=== PATIENT | female | born 1985 | race Caucasian/White ===

== ENCOUNTER 2020-08-01 00:12 | Inpatient (IN) | payer SELFPAY ==
[2020-08-01 00:46] VITALS: BP 134/83; PULSE 74; RESP 18; TEMP 36.6; O2SAT 95; BMI 26.6
--- NOTE | 2020-08-01 01:01 | ED_ITS ---
HPI - Psych General: Chief Complaint: Psychiatric Symptoms Stated Complaint: mhe, stress unit Time Seen by Provider: 08/01/20 00:27 Source: patient Mode of arrival: ambulatory Limitations: no limitations History of Present Illness: HPI Narrative: 34-year-old female states she has been having increasing depression over the last week. She states she feels overwhelmed with life and feels like she is a failure. Patient is crying and very tearful and states she just does not want to live anymore. She states she has been having suicidal thoughts and wants to get help. She has no specific plan. States she is admitted to psych facility as a child but never as an adult. She denies any psych medication currently. She denies drug use but states she does drink almost daily. MD complaint: suicidal ideation Associated symptoms: Reports depression and suicidal ideation Review of Systems Const: Denies: fever(s), chills, body aches or change in appetite Eyes: Denies: blurry vision or eye discomfort ENMT: Denies: throat pain or dental pain Card: Denies: chest pain Resp: Denies: dyspnea GI: Denies: abdominal pain, nausea, vomiting or diarrhea : Denies: dysuria Musc: Denies: neck pain or back pain Skin/Breast: Denies: rash Neuro: Denies: headache(s) Psych: Reports: depression and suicidal ideation Barry/Lymph: Denies: easy bruising All/Imm: Denies: urticaria PFSH ED PFSH: Social History Smoking and tobacco status: current every day smoker Current gender identity: Female Female Reproductive History: Date of last menstrual period: 08/01/20 Physical Exam Const: COMMON NORMALS: no acute distress, patient oriented x3 and healthy appearing GENERAL APPEARANCE: anxious HENMT: COMMON NORMALS: normocephalic and atraumatic HEAD & SCALP: normocephalic and atraumatic Eye: COMMON NORMALS: Equal, round and reactive pupils present and EOMs intact bilaterally PUPIL: Yes Equal, round and reactive pupils present Neck/C-Spine: COMMON NORMALS: full ROM and supple Chest: COMMONS NORMALS: normal inspection of the chest and normal palpation of entire chest wall Resp: COMMON NORMALS: normal respiratory effort, No retractions, No use of accessory muscles and clear to auscultation bilaterally AUSCULTATION: clear to auscultation bilaterally Cardio: COMMON NORMALS: regular rate, regular rhythm and No murmurs present (Cardio) RATE: regular rate RHYTHM: regular rhythm GI: COMMON NORMALS: Normal to inspection, nondistended, normoactive bowel sounds present, Soft to palpation, non-tender and no masses PALPATION: Yes Soft to palpation Extremity: COMMON NORMALS: normal to inspection and full ROM Neuro: COMMON NORMALS: patient oriented x3, moves all extremities and no focal motor deficits Psych: COMMON NORMALS: mental status grossly normal, Normal thought process present and cooperative THOUGHT PROCESS: Normal thought process present THOUGHT CONTENT: Yes Suicidality present OTHER: tearful Skin: COMMON NORMALS: no rashes or lesions noted and no wounds GENERAL SKIN EXAM: no rashes or lesions noted MDM - Psych MDM Narrative: Medical decision making narrative: Lukas presents here with suicidal ideation and depression. Patient is voluntarily wanting to be admitted and she is medically cleared. I spoke to psychiatrist and will admit her to the psychiatric unit. She has been stable while here. Lab Data: Labs: Lab Results 08/01/20 08/01/20 08/01/20 Range/Units 01:39 01:39 01:43 WBC 7.8 (4.0-10.0) 10^3/ uL RBC 4.84 (4.1-5.3) 10^6/u L Hgb 15.5 H (11.5-15.3) g/dL Hct 47.3 H (37.0-47.0) % MCV 97.7 (81-99) fL MCH 32.0 (28.0-34.0) pg MCHC 32.8 (30.0-36.0) g/dL RDW 13.4 (12.1-15.1) % Plt Count 301 (130-400) 10^3/c mm MPV 10.8 H (7.4-10.4) fL Neut % (Auto) 43.5 % Lymph % (Auto) 47.0 % [place] % (Auto) 4.0 % Eos % (Auto) 4.1 % Baso % (Auto) 1.0 % Neut # (Auto) 3.37 (1.8-7.7) 10^3/u L Lymph # (Auto) 3.7 (0.8-4.8) 10^3/u L [place] # (Auto) 0.3 (0.2-0.9) 10^3/u L Eos # (Auto) 0.3 (0.0-0.8) 10^3/u L Baso # (Auto) 0.1 (0.0-0.1) 10^3/u L Nucleated RBC % (a uto) 0 % Nucleated RBCs # 0.0 /100WBC Sodium 142 (136-145) mmol/L Potassium 4.1 (3.5-5.1) mmol/L Chloride 104 (98-107) mmol/L Carbon Dioxide 31 H (22-29) mmol/L Anion Gap 11.1 (5-19) BUN 10 (6-20) mg/dL Creatinine 0.8 (0.5-0.9) mg/dL GFR Calculation 81.2 L (90-130) mL/min Glucose 104 (65-115) mg/dL Calculated Osmolal ity 293 (285-295) mOsm/k g Calcium 8.6 (8.5-10.5) mg/dL Total Bilirubin 0.2 (0.15-1.2) mg/dL AST 67 H (0-32) U/L ALT 64 H (0-33) U/L Alkaline Phosphata se 93 (35-105) IU/L Total Protein 8.7 (6.6-8.7) g/dL Albumin 4.6 (3.5-5.2) g/dL Globulin 4.1 (1.3-4.6) g/dL HCG, Qual Negative (Negative) Salicylates < 0.3 L (3-10) mg/dL Urine Opiates Scre en (Negative) ng/mL Acetaminophen < 5.0 L (10-30) ug/mL Ur Barbiturates Sc reen (Negative) ng/mL Ur Phencyclidine S crn (Negative) ng/mL Ur Amphetamines Sc reen (Negative) ng/mL U Benzodiazepines Scrn (Negative) ng/mL Urine Cocaine Scre en (Negative) ng/mL U Marijuana (THC) Screen (Negative) ng/mL Ethyl Alcohol 181 H (0-10) mg/dL 08/01/20 Range/Units 01:43 WBC (4.0-10.0) 10^3/ uL RBC (4.1-5.3) 10^6/u L Hgb (11.5-15.3) g/dL Hct (37.0-47.0) % MCV (81-99) fL MCH (28.0-34.0) pg MCHC (30.0-36.0) g/dL RDW (12.1-15.1) % Plt Count (130-400) 10^3/c mm MPV (7.4-10.4) fL Neut % (Auto) % Lymph % (Auto) % [place] % (Auto) % Eos % (Auto) % Baso % (Auto) % Neut # (Auto) (1.8-7.7) 10^3/u L Lymph # (Auto) (0.8-4.8) 10^3/u L [place] # (Auto) (0.2-0.9) 10^3/u L Eos # (Auto) (0.0-0.8) 10^3/u L Baso # (Auto) (0.0-0.1) 10^3/u L Nucleated RBC % (a uto) % Nucleated RBCs # /100WBC Sodium (136-145) mmol/L Potassium (3.5-5.1) mmol/L Chloride (98-107) mmol/L Carbon Dioxide (22-29) mmol/L Anion Gap (5-19) BUN (6-20) mg/dL Creatinine (0.5-0.9) mg/dL GFR Calculation (90-130) mL/min Glucose (65-115) mg/dL Calculated Osmolal ity (285-295) mOsm/k g Calcium (8.5-10.5) mg/dL Total Bilirubin (0.15-1.2) mg/dL AST (0-32) U/L ALT (0-33) U/L Alkaline Phosphata se (35-105) IU/L Total Protein (6.6-8.7) g/dL Albumin (3.5-5.2) g/dL Globulin (1.3-4.6) g/dL HCG, Qual (Negative) Salicylates (3-10) mg/dL Urine Opiates Scre en Negative (Negative) ng/mL Acetaminophen (10-30) ug/mL Ur Barbiturates Sc reen Negative (Negative) ng/mL Ur Phencyclidine S crn Negative (Negative) ng/mL Ur Amphetamines Sc reen Negative (Negative) ng/mL U Benzodiazepines Scrn Negative (Negative) ng/mL Urine Cocaine Scre en Negative (Negative) ng/mL U Marijuana (THC) Screen Positive H (Negative) ng/mL Ethyl Alcohol (0-10) mg/dL Discharge Plan Discharge Patient Disposition: Admitted As Inpatient Clinical Impression: Suicidal ideation Condition: Stable Coding Level of Care Code ED Finish Cleaner for Jessica Villa Exam Comprehensive
[2020-08-01] MEDS: LORazepam 1 mg Tablet PO (01:25)
[2020-08-01 01:56] LABS: Basophils # 0.1 10^3/uL (0.0-0.1); Eosinophils # 0.3 10^3/uL (0.0-0.8); Eosinophils % 4.1 %; Hematocrit 47.3 % (37.0-47.0); Hemoglobin 15.5 g/dL (11.5-15.3); Lymphocytes # 3.7 10^3/uL (0.8-4.8); Mean Corpuscular HGB Conc 32.8 g/dL (30.0-36.0); Mean Corpuscular Volume 97.7 fL (81-99); Mean Platelet Volume 10.8 fL (7.4-10.4); Monocytes # 0.3 10^3/uL (0.2-0.9); Neutrophils # 3.37 10^3/uL (1.8-7.7); Neutrophils % 43.5 %; Nucleated Red Blood Cells % 0 %; Platelet Count 301 10^3/cmm (130-400); Red Blood Count 4.84 10^6/uL (4.1-5.3); Red Cell Distribution Width 13.4 % (12.1-15.1); White Blood Count 7.8 10^3/uL (4.0-10.0)
[2020-08-01 02:03] LABS: HCG Qualitative Urine. Negative (Negative)
[2020-08-01 02:08] LABS: Amphetamines Screen Urine Negative (Negative); Barbiturates Screen Urine Negative (Negative); Benzodiazepines Screen Urine Negative (Negative); Cocaine Screen Urine Negative (Negative); Opiate Screen Urine Negative (Negative); PCP Screen Urine Negative (Negative); THC Screen Urine Positive (Negative)
[2020-08-01 02:14] LABS: Alanine Aminotransferase 64 U/L (0-33); Albumin Level 4.6 g/dL (3.5-5.2); Alcohol Level 181 mg/dL (0-10); Alkaline Phosphatase 93 IU/L (35-105); Anion Gap 11.1 (5-19); Aspartate Amino Transferase 67 U/L (0-32); Blood Urea Nitrogen 10 mg/dL (6-20); Calcium 8.6 mg/dL (8.5-10.5); Carbon Dioxide 31 mmol/L (22-29); Chloride 104 mmol/L (98-107); Creatinine Clr Calc Pharmacy 93.5303; Globulin 4.1 g/dL (1.3-4.6); Glomerular Filtration Rate 81.2 mL/min (90-130); Glucose 104 mg/dL (65-115); Osmolality Calculated 293 mOsm/kg (285-295); Potassium 4.1 mmol/L (3.5-5.1); Sodium 142 mmol/L (136-145); Total Bilirubin 0.2 mg/dL (0.15-1.2); Total Protein 8.7 g/dL (6.6-8.7)
[2020-08-01 02:35] LABS: Acetaminophen < 5.0 ug/mL (10-30); Salicylate < 0.3 mg/dL (3-10)
[2020-08-01 03:50] VITALS: BP 126/84; PULSE 65; RESP 18; TEMP 37.2; O2SAT 99
[2020-08-01 06:00] VITALS: BP 126/84; PULSE 65; RESP 18; TEMP 37.2
[2020-08-01] MEDS: thiamine 100 mg Tablet PO (08:53)
[2020-08-01] MEDS: folic acid 1 mg Tablet PO (08:53)
[2020-08-01] MEDS: multivitamin therapeutic Tablet 1 TAB PO (08:53)
[2020-08-01 13:30] VITALS: BP 126/84; PULSE 67; RESP 16; TEMP 36.2; O2SAT 95
[2020-08-01] MEDS: nicotine 2 mg Gum BUCCAL ×3 (13:31→20:33)
--- NOTE | 2020-08-01 13:46 | PM.NHP ---
Providers/Chief Complaint Admitting Physician: Pamela Brown DO Chief Complaint: mhe, stress unit HPI NPU History of Present Illness Janice Nguyen is a 34 year old female with reported history of major depressive disorder, anxiety disorder, history of PTSD presenting to the emergency department with alcohol intoxication requesting psychiatric admission. Patient currently denying any depressed symptoms, denies any suicidal ideation stating that she was just emotional while she was intoxicated. Patient states that she took an Uber to come to the hospital because she felt like she needed to talk to someone. She denies any self-harm behavior and denies any history of suicide attempts. She is currently denying any PTSD symptoms, denies any trauma related symptoms. She denies taking any medication or doing any trauma based therapy. She is currently denying any anxiety symptoms. Patient states that she had been seen at a methadone clinic with last visit yesterday. Per nurse review, patient was given 2-day supply but no longer had any of this 2-day supply she was just given yesterday. She currently denies any withdrawal symptoms but does report being seen at methadone clinic, denies any recent substance use but reports using alcohol and presented to the emergency department with alcohol intoxication with a blood alcohol level of 181 mg/dL. Psychiatric review of systems is otherwise negative. Patient reports that she has been followed at a methadone clinic. Review of Systems General: Reports: 10 or more systems reviewed and unremarkable except in HPI and below Meds NPU Home Medications Medication Instructions Recorded Confirmed Last Taken Type methadone 10 mg tablet 90 mg PO DAILY tab 05/17/20 08/01/20 07/31/20 10:00 History Allergies Allergy/AdvReac Type Severity Reaction Status Date / Time aripiprazole [From Abilify] Allergy ADR-Muscle Verified 08/01/20 00:53 Pain risperidone [From Risperdal] Allergy ADR-Muscle Verified 08/01/20 00:53 Pain PFSH NPU PFSH: Social History Smoking and tobacco status: current every day smoker Current gender identity: Female Other Psychiatric History: Other Psychiatric History: Seen by [facility] a year ago by a therapist, no current outpatient medication management other than being seen by methadone clinic Mental Status Exam MSE Comments: Patient sitting on her bed, wearing hospital scrubs, appears older than stated age, calm, cooperative, interactive Psychomotor activity is neither increased nor decreased, no visible shakes or tremors, no agitation Speech is normal rate and volume, spontaneous, fair articulation, not pressured I feel okay, full range of affect, not labile Alert and oriented to person, place, time, situation Memory and concentration appear to be intact per interview Intellectual functioning appears to be average at best based on vocabulary, interview Thought process, linear, no flight of ideas, no looseness of associations Thought content, no delusions, no hallucinations, no suicidal or homicidal ideation Insight and judgment appear to be fair Vitals/I&O/Wt Last Vital Signs Temp 97.2 F L 08/01/20 13:30 Pulse 67 08/01/20 13:30 Resp 16 08/01/20 13:30 BP 126/84 08/01/20 13:30 Pulse Ox 95 08/01/20 13:30 Weight last 48 hrs Weight 70.307 kg Data NPU : 08/01/20 01:39 08/01/20 01:39 A&P Assessment and plan (1) Suicidal ideation: Status: Acute (2) Depressive disorder: Status: Acute (3) Long-term current use of methadone for opiate dependence: Status: Acute (4) Polysubstance abuse: Status: Acute (5) Alcohol intoxication: Status: Acute Additional A&P Information Patient with history of polysubstance abuse presented to the emergency department with alcohol intoxication, reported worsening depressive symptoms and suicidal ideation, currently denying any depressive symptoms or suicidal ideation although continues to use methadone for history of opioid dependence, unclear recent treatment of depressive symptoms and medication management. VOLUNTARY ADMIT to inpatient psychiatry Continue to monitor for any worsening suicidal ideation or behaviors Coordinate with mental health social worker for post discharge follow-up Involuntary Hold Information 96 Hour Hold: 96 Hour Involuntary Admission: No Attestations NPU Medical Necessity Statement*: Psychiatric hospitalization required for observation for suicidal ideation or behaviors, coordination for safe discharge Time Spent in Patient Care: Greater than 35 minutes (>than 50% of time spent in counselling and/or direct pt care on unit). Coding Level of Care Code Acute Paper Gluing Operator for Jessica Fwd Diagnoses Suicidal ideation R45.851 Depressive disorder F32.9 Long-term current use of methadone for opiate dependence F11.20 Polysubstance abuse F19.10 Alcohol intoxication F10.929
[2020-08-01 20:49] VITALS: BP 123/78; PULSE 55; RESP 18; TEMP 36.8; O2SAT 97
[2020-08-02 05:15] VITALS: BMI 26.6
[2020-08-02 06:00] VITALS: BP 120/66; PULSE 70; RESP 15; TEMP 36.2; O2SAT 97
[2020-08-02] MEDS: multivitamin therapeutic Tablet 1 TAB PO (08:29)
[2020-08-02] MEDS: folic acid 1 mg Tablet PO (08:29)
[2020-08-02] MEDS: thiamine 100 mg Tablet PO (08:29)
--- NOTE | 2020-08-02 10:10 | PM.NDC ---
Diagnoses at Discharge Discharge Diagnosis (1) Suicidal ideation: Status: Acute (2) Depressive disorder: Status: Acute (3) Long-term current use of methadone for opiate dependence: Status: Acute (4) Polysubstance abuse: Status: Acute (5) Alcohol intoxication: Status: Acute Reason for Visit Reason for Visit: mhe, stress unit Hospital Course Hospital Course 34 year old female with reported history of major depressive disorder, anxiety disorder, history of PTSD presenting to the emergency department with alcohol intoxication requesting psychiatric admission. Patient immediately stated that she was not suicidal after becoming sober and that it was a mistake for her to come in the hospital and was refusing any medication or treatment. Patient stated that she wanted to return to the methadone clinic. Of note, patient had been given a 2-day supply on Monday but did not have her second day supply upon arriving to the emergency department Monday evening. Patient stated that she had no interest in following up at [facility] for follow on evaluation and medication management for her reported depressive symptoms which she had told the ER had been worsening over the past couple months. She was not suicidal at the time of discharge and did not appear to be an imminent threat of harm to self or others. Low to moderate risk of harm to self given no current suicidal ideation and no current endorsement of psychiatric symptoms although her risk will continue to be elevated if she continues to abuse alcohol and possibly other substances or is noncompliant with follow-up care leading to unexpected, impulsive behavior. Risk mitigation included observation over 24 hours for any return of suicidal ideation or behaviors, recommendation to abstain from use of substances and alcohol as well as recommendation to follow-up in outpatient [facility] for medication management for her depressive symptoms and substance counseling. Patient communicated her understanding of the above recommendations but stated that she had no interest in outpatient medication management for her depression but plans to go to methadone clinic post discharge. Patient did communicate her understanding of the recommendation for further counseling and therapy to target development of more adaptive coping strategies in order to further mitigate her risk of harm to self and others. Involuntary Hold Information 96 Hour Hold: 96 Hour Involuntary Admission: No Mental Status Exam MSE Comments: Appropriately groomed and dressed, sitting on her bed, polite, interactive, good eye contact Psychomotor activity is neither increased nor decreased, no visible shakes or tremors, no agitation Speech is normal rate and volume, spontaneous, fair articulation, not pressured Good, full range of affect, not labile Alert and oriented to person, place, time, situation Memory and concentration appear to be intact per interview Thought process, linear, no flight of ideas, no looseness of associations Thought content, no delusions, no hallucinations, no suicidal or homicidal ideation Insight and judgment appear to be fair Discharge Data Vitals: Last Vital Signs Temp 97.2 F L 08/02/20 06:00 Pulse 70 08/02/20 06:00 Resp 15 08/02/20 06:00 BP 120/66 08/02/20 06:00 Pulse Ox 97 08/02/20 06:00 Discharge Plan Discharge Patient Disposition: Home Condition: Stable Prescriptions: Continued methadone 10 mg tablet 90 mg PO DAILY RF: 0 Discharge Orders: Discharge Order (Routine); Ordered 08/02/20 Ordered By: Pamela Brown Discharge Diet: Regular Discharge Activity: Resume usual activity Patient Instructions: Opioid Safety Discharge Attestations NPU Time Spent in Discharge Care*: greater than 30 min Status at Discharge: Cognitive status at discharge: cognitively intact, Behavioral status at discharge: cooperative, Functional status at discharge: independent ambulation Overall status at discharge: patient is back to baseline Coding Level of Care Code Acute Chg FW DC note Diagnoses Suicidal ideation R45.851 Depressive disorder F32.9 Long-term current use of methadone for opiate dependence F11.20 Polysubstance abuse F19.10 Alcohol intoxication F10.929
[2020-08-02 10:13] VITALS: BP 120/66; PULSE 70; RESP 15; TEMP 36.2; O2SAT 97
[2020-08-02 10:30] VITALS: BP 120/66; PULSE 70; RESP 15; TEMP 36.2; O2SAT 97
--- NOTE | 2020-08-05 17:14 | PC.RESP ---
Smoking Cessation information sent to patient.
== END 2020-08-02 10:31 | disposition home or self-care (01) | DRG 897 ==
LOC: ER 02:15 → NP 03:17
PROVIDERS: Admitting Provider Psychiatry & Neurology Psychiatry; Emergency Provider Emergency Medicine; Visit Provider Psychiatry & Neurology Psychiatry
DX: F10.129 Alcohol abuse with intoxication, unspecified (principal); R45.851 Suicidal ideations; F11.20 Opioid dependence, uncomplicated; Y90.6 Blood alcohol level of 120-199 mg/100 ml; F32.9 Major depressive disorder, single episode, unspecified; F41.9 Anxiety disorder, unspecified; F43.10 Post-traumatic stress disorder, unspecified; F19.11 Other psychoactive substance abuse, in remission
CPT/HCPCS: 80053; 80306; 80307; 81025; 85025; 99285

== ENCOUNTER 2021-01-16 14:04 | Inpatient (IN) | payer SELFPAY ==
[2021-01-16 14:12] VITALS: BP 132/79; PULSE 109; RESP 20; TEMP 36.8; O2SAT 98; BMI 25.7
[2021-01-16 14:18] VITALS: BP 132/70; PULSE 109; RESP 20; O2SAT 97
--- NOTE | 2021-01-16 14:23 | W.ED.PSYCH ---
HPI - Psych General: Chief Complaint: Psychiatric Symptoms Stated Complaint: Emotional, unclear thoughts Time Seen by Provider: 01/16/21 14:23 History of Present Illness: HPI Narrative: Ms. Nguyen is a 35-year-old lady with significant past medical history of depressive disorder and substance abuse who presents the emergency department due to psychiatric concern. On Monday she discovered her friend who she was with and used heroin with. Since that time she has had profound grief, uncontrolled tearfulness, nausea, anxiety, passive suicidal ideation, and guilt. The intensity of symptoms is moderate to severe in the course has been worsening. She denies other medical complaints. She denies other specific changes in health, exacerbating, or alleviating factors. She reports last heroin use was on Monday. She denies current other medication use. Review of Systems General: Reports: 10 or more systems reviewed and unremarkable except in HPI and below PFSH ED PFSH: Medical History Polysubstance abuse Social History Smoking and tobacco status: unknown if ever smoked Current gender identity: Female Female Reproductive History: Date of last menstrual period: 08/01/20 Physical Exam Narrative: EXAM NARRATIVE: GENERAL/CONSTITUTIONAL - well-appearing. No acute distress. Eyes - PERRL, no conjunctival injection ENMT - Atraumatic external nose and ears. Moist mucous membranes NECK - supple. trachea midline CARDIOVASCULAR - regular rate and rhythm. RESPIRATORY -clear to auscultation bilaterally. No retractions or accessory muscle use. ABDOMEN/GI - Nontender/Nondistended. MSK - Extremities without obvious deformity or tenderness to palpation SKIN - Warm, Dry NEURO - alert and appropriately oriented. Moves all extremities equally. PSYCH -tearful, depressed, withdrawn. Course ED course: - Patient was seen and evaluated by me at bedside -Vital signs obtained - Initial evaluation notable for tearful and withdrawn affect - Labs notable for as noted, no interventions required - Patient denies active SI or HI however given degree of severity of acute grief reaction including profound guilt and poor social support network psychiatry was consulted. Dr. Christiansen came to evaluate the patient, patient will be admitted for further management in the inpatient setting. -Based on ED evaluation there is no obvious condition that would preclude the patient from inpatient management of psychiatric concerns. Vital Signs: Vital signs: Vital Signs Temperature 98.4 F 01/17/21 06:00 Pulse Rate 57 L 01/17/21 06:00 Respiratory Rate 18 01/17/21 06:00 Blood Pressure 124/84 01/17/21 06:00 Pulse Oximetry 96 01/17/21 06:00 MDM - Psych Medical Records: Attestation: I reviewed the patient's medical records. Lab Data: Attestation: I reviewed the patient's lab results. Labs: Lab Results 01/16/21 01/16/21 01/16/21 14:35 14:35 14:52 WBC 7.9 10^3/uL 10^3/ uL (4.0-10.0) RBC 4.36 10^6/uL 10^6 /uL (4.1-5.3) Hgb 14.6 g/dL g/dL (11.5-15.3) Hct 42.4 % % (37.0-47.0) MCV 97.2 fl fl (81-99) MCH 33.5 pg pg (28.0-34.0) MCHC 34.4 g/dL g/dL (30.0-36.0) RDW 11.9 % L % (12.1-15.1) Plt Count 255 10^3/cmm 10^3 /cmm (130-400) MPV 10.4 fL fL (7.4-10.4) Neut % (Auto) 67.7 % % Lymph % (Auto) 22.9 % % [place] % (Auto) 6.5 % % Eos % (Auto) 1.8 % % Baso % (Auto) 0.8 % % Neut # (Auto) 5.38 10^3/uL 10^3 /uL (1.8-7.7) Lymph # (Auto) 1.8 10^3/uL 10^3/ uL (0.8-4.8) [place] # (Auto) 0.5 10^3/uL 10^3/ uL (0.2-0.9) Eos # (Auto) 0.1 10^3/uL 10^3/ uL (0.0-0.8) Baso # (Auto) 0.1 10^3/uL 10^3/ uL (0.0-0.1) Nucleated RBC % (a uto) 0 % % Nucleated RBCs # 0.0 /100WBC /100W BC Sodium 139 mmol/L mmol/L (136-145) Potassium 3.5 mmol/L mmol/L (3.5-5.1) Chloride 103 mmol/L mmol/L (98-107) Carbon Dioxide 25 mmol/L mmol/L (22-29) Anion Gap 14.5 (5-19) BUN 6 mg/dL mg/dL (6-20) Creatinine 0.7 mg/dL mg/dL (0.5-0.9) GFR Calculation 94.2 mL/min mL/mi n (90-130) Glucose 90 mg/dL mg/dL (65-115) Calculated Osmolal ity 285 mOsm/kg mOsm/ kg (285-295) Calcium 9.2 mg/dL mg/dL (8.5-10.5) Total Bilirubin 0.4 mg/dL mg/dL (0.15-1.2) AST 16 U/L U/L (0-32) ALT 19 U/L U/L (0-33) Alkaline Phosphata se 69 IU/L IU/L (35-105) Total Protein 7.9 g/dL g/dL (6.6-8.7) Albumin 4.1 g/dL g/dL (3.5-5.2) Globulin 3.8 g/dL g/dL (1.3-4.6) TSH 0.40 uIU/mL uIU/m L (0.27-4.20) HCG, Qual Negative (Negative) Salicylates < 0.3 mg/dL L mg/ dL (3-10) Urine Opiates Scre en Acetaminophen < 5.0 ug/mL L ug/ mL (10-30) Ur Barbiturates Sc reen Ur Phencyclidine S crn Ur Amphetamines Sc reen U Benzodiazepines Scrn Urine Cocaine Scre en U Marijuana (THC) Screen Ethyl Alcohol 75 mg/dL H mg/dL (0-10) 01/16/21 14:52 WBC RBC Hgb Hct MCV MCH MCHC RDW Plt Count MPV Neut % (Auto) Lymph % (Auto) [place] % (Auto) Eos % (Auto) Baso % (Auto) Neut # (Auto) Lymph # (Auto) [place] # (Auto) Eos # (Auto) Baso # (Auto) Nucleated RBC % (a uto) Nucleated RBCs # Sodium Potassium Chloride Carbon Dioxide Anion Gap BUN Creatinine GFR Calculation Glucose Calculated Osmolal ity Calcium Total Bilirubin AST ALT Alkaline Phosphata se Total Protein Albumin Globulin TSH HCG, Qual Salicylates Urine Opiates Scre en Negative ng/mL ng /mL (Negative) Acetaminophen Ur Barbiturates Sc reen Negative ng/mL ng /mL (Negative) Ur Phencyclidine S crn Negative ng/mL ng /mL (Negative) Ur Amphetamines Sc reen Positive ng/mL H ng/mL (Negative) U Benzodiazepines Scrn Positive ng/mL H ng/mL (Negative) Urine Cocaine Scre en Negative ng/mL ng /mL (Negative) U Marijuana (THC) Screen Positive ng/mL H ng/mL (Negative) Ethyl Alcohol EKG Data^: EKG 1: Attestation: I personally reviewed and interpreted this EKG as follows: EKG interpretation date: 01/16/21 EKG interpretation time: 15:08 Interpretation: Twelve-lead EKG shows a regular sinus rhythm at a rate of 93. CO interval 158, QRS duration 99, QTc 436. Normal axis. Interpretation: Sinus rhythm. Discharge Plan Discharge Admit Provider: Seth Christiansen Discharge Orders: Discharge Order (Routine); Ordered 01/17/21 Ordered By: Seth Christiansen Coding Level of Care Code ED Hospital Recruiter for Chg Daisy
--- NOTE | 2021-01-16 14:49 | ECG_ITS ---
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
[2021-01-16 14:58] LABS: Basophils # 0.1 10^3/uL (0.0-0.1); Basophils % 0.8 %; Eosinophils # 0.1 10^3/uL (0.0-0.8); Eosinophils % 1.8 %; Hematocrit 42.4 % (37.0-47.0); Hemoglobin 14.6 g/dL (11.5-15.3); Lymphocytes # 1.8 10^3/uL (0.8-4.8); Lymphocytes % 22.9 %; Mean Corpuscular HGB Conc 34.4 g/dL (30.0-36.0); Mean Corpuscular Hemoglobin 33.5 pg (28.0-34.0); Mean Corpuscular Volume 97.2 fl (81-99); Mean Platelet Volume 10.4 fL (7.4-10.4); Monocytes # 0.5 10^3/uL (0.2-0.9); Monocytes % 6.5 %; Neutrophils # 5.38 10^3/uL (1.8-7.7); Neutrophils % 67.7 %; Nucleated Red Blood Cells % 0 %; Platelet Count 255 10^3/cmm (130-400); Red Blood Count 4.36 10^6/uL (4.1-5.3); Red Cell Distribution Width 11.9 % (12.1-15.1); White Blood Count 7.9 10^3/uL (4.0-10.0)
[2021-01-16 15:06] LABS: HCG Qualitative Urine. Negative (Negative)
[2021-01-16 15:10] LABS: Amphetamines Screen Urine Positive (Negative); Barbiturates Screen Urine Negative (Negative); Benzodiazepines Screen Urine Positive (Negative); Cocaine Screen Urine Negative (Negative); Opiate Screen Urine Negative (Negative); PCP Screen Urine Negative (Negative); THC Screen Urine Positive (Negative)
[2021-01-16 15:19] LABS: Alanine Aminotransferase 19 U/L (0-33); Albumin Level 4.1 g/dL (3.5-5.2); Alcohol Level 75 mg/dL (0-10); Alkaline Phosphatase 69 IU/L (35-105); Anion Gap 14.5 (5-19); Aspartate Amino Transferase 16 U/L (0-32); Blood Urea Nitrogen 6 mg/dL (6-20); Calcium 9.2 mg/dL (8.5-10.5); Carbon Dioxide 25 mmol/L (22-29); Chloride 103 mmol/L (98-107); Globulin 3.8 g/dL (1.3-4.6); Glomerular Filtration Rate 94.2 mL/min (90-130); Glucose 90 mg/dL (65-115); Osmolality Calculated 285 mOsm/kg (285-295); Potassium 3.5 mmol/L (3.5-5.1); Sodium 139 mmol/L (136-145); Total Bilirubin 0.4 mg/dL (0.15-1.2); Total Protein 7.9 g/dL (6.6-8.7)
[2021-01-16 15:42] LABS: Acetaminophen < 5.0 ug/mL (10-30); Salicylate < 0.3 mg/dL (3-10)
--- NOTE | 2021-01-16 17:08 | P.CONIM_ITS ---
Providers/Reason for Consult Consulting Physican/Specialty*: Seth Christiansen MD / psychiatry Reason for Consult*: Depression, grief Attending Physician: Refugio Rodriguez MD Psych Consult HPI History of Present Illness Janice Nguyen is a 35 year old female with reported history of major depressive disorder, anxiety disorder, history of PTSD who presented to the ED for evaluation and treatment after a traumatic event. The note from the ED states: HPI Narrative: Ms. Nguyen is a 35-year-old lady with significant past medical history of depressive disorder and substance abuse who presents the emergency department due to psychiatric concern. On Monday she discovered her friend who she was with and used heroin with. Since that time she has had profound grief, uncontrolled tearfulness, nausea, anxiety, passive suicidal ideation, and guilt. The intensity of symptoms is moderate to severe in the course has been worsening. She denies other medical complaints. She denies other specific changes in health, exacerbating, or alleviating factors. She reports last heroin use was on Monday. She denies current other medication use. The patient is obviously quite sad and distraught about finding her friend . She says she is having trouble getting the image out of her mind. As described above, the patient has felt sad, anxious, angry, and guilty. She says she has been crying a lot. She has some feeling that she would be better off , too, but she is having no thoughts of killing herself. She says she has been using meth and marijuana but no more heroin. UDS is positive for amphetamines, marijuana, and benzodiazepines, which she has been given in the ED. She has a previous overnight hospitalization back in July when she became suicidal while intoxicated on alcohol. She was discharged the next day because the suicidal ideation resolved after she sobered up. PFSH NPU PFSH: Medical History Polysubstance abuse Social History Smoking and tobacco status: unknown if ever smoked Current gender identity: Female Mental Status Exam MSE Comments: I met with the patient in the ED. She was dressed in hospital scrubs and her hair was uncombed. She was tearful, agitated, cooperative, and made fair eye contact. Some psychomotor agitation. Speech is at a regular rate and rhythm, normal volume, good articulation, not pressured. Alert, oriented to person, place, time, and situation. Attention and concentration were intact to exam. Memory is intact for the purposes of this interview. Mood is depressed and anxious. Affect is tearful and distressed. Thought process is logical and goal-directed. Thought content: Denies auditory and visual hallucinations. No delusions or paranoia are noted. No current suicidal ideation, and no homicidal ideation. She does have the intermittent wish that she had . Fund of knowledge is intact to exam. Language is intact to exam. Insight and judgment appear to be fair. Impulse control is fair as well. Vitals/I&O/Wt Last Vital Signs Temp 98.4 F 01/17/21 06:00 Pulse 57 L 01/17/21 06:00 Resp 18 01/17/21 06:00 BP 124/84 01/17/21 06:00 Pulse Ox 96 01/17/21 06:00 Weight last 48 hrs Weight 68.039 kg Weight 68.039 kg A&P Additional A&P Information The patient said she would like to be admitted to the neuropsychiatric unit for additional support during this time of distress. It is recommended that she be voluntarily admitted to the NPU. Involuntary Hold Information 96 Hour Hold: 96 Hour Involuntary Admission: No Attestations NPU Medical Necessity Statement*: Per ED physician Coding Level of Care Code Acute Portfolio Accountant for Jessica Villa
[2021-01-16 17:46] VITALS: BP 124/66; PULSE 99; RESP 18; O2SAT 96
[2021-01-16] MEDS: OLANZapine 5 mg ODT PO (18:11)
[2021-01-16] MEDS: nicotine 2 mg Gum BUCCAL (18:11)
[2021-01-16] MEDS: sertraline 50 mg Tablet PO (18:57)
--- NOTE | 2021-01-16 18:59 | PM.NHP ---
Providers/Chief Complaint Admitting Physician: Seth Christiansen MD Chief Complaint: Emotional, unclear thoughts HPI NPU History of Present Illness Janice Nguyen is a 35 year old female Meds NPU Home Medications Medication Instructions Recorded Confirmed Last Taken Type No Known Home Medications 01/16/21 01/16/21 Unknown History Allergies Allergy/AdvReac Type Severity Reaction Status Date / Time aripiprazole [From Abilify] Allergy ADR-Muscle Verified 08/01/20 00:53 Pain risperidone [From Risperdal] Allergy ADR-Muscle Verified 08/01/20 00:53 Pain PFSH NPU PFSH: Medical History Polysubstance abuse Social History Smoking and tobacco status: current every day smoker Current gender identity: Female Vitals/I&O/Wt Last Vital Signs Temp 98.2 F 01/16/21 14:12 Pulse 99 01/16/21 17:46 Resp 18 01/16/21 17:46 BP 124/66 01/16/21 17:46 Pulse Ox 96 01/16/21 17:46 Weight last 48 hrs Weight 68.039 kg Data NPU : 01/16/21 14:35 01/16/21 14:35 Involuntary Hold Information 96 Hour Hold: 96 Hour Involuntary Admission: No Coding Level of Care Code Acute Steam Conditioner Filling for Jessica Villa
[2021-01-16 20:47] VITALS: BP 118/77; PULSE 85; RESP 18; TEMP 37.1; O2SAT 98
[2021-01-16] MEDS: mirtazapine 15 mg Tablet PO (21:06)
[2021-01-17 06:00] VITALS: BP 124/84; PULSE 57; RESP 18; TEMP 36.9; O2SAT 96
[2021-01-17] MEDS: OLANZapine 5 mg ODT PO (09:03)
[2021-01-17] MEDS: sertraline 50 mg Tablet PO (09:03)
[2021-01-17] MEDS: nicotine 14 mg Patch 1 PATCH TRANSDERMA (09:03)
--- NOTE | 2021-01-17 09:14 | PC.NURSE ---
ADMINISTERED ZYPREXA ZYDIS 5MG SUBLINGUAL FOR INCREASING AGITATION. WILL MONITOR FOR MEDICATION EFFECTIVENESS.
--- NOTE | 2021-01-17 09:43 | PC.NURSE ---
Patient demanding to leave/discharge AMA, stated we keep waking her up and keep giving her the wrong medications and yelling at staff that she just wants to be discharged so she can go smoke. pt demanding her clothes to change into right this minute. physician contacted via phone by Rafa Hay RN. Telephone order received that pt can leave AMA after filling out appropriate paperwork. AMA paperwork filled out and put with patient chart. pt discharged from unit with all personal belongings & wished well.
--- NOTE | 2021-01-17 11:08 | P.SS_ITS ---
Short Stay Summary Providers Date of Admit/Discharge: 01/18/21 Attending Provider: Seth Christiansen MD Chief Complaint: Emotional, unclear thoughts HPI History of Present Illness As was stated in the consultation, Janice Nguyen is a 35 year old female with reported history of major depressive disorder, anxiety disorder, history of PTSD who presented to the ED for evaluation and treatment after a traumatic event. The note from the ED states: HPI Narrative: Ms. Nguyen is a 35-year-old lady with significant past medical history of depressive disorder and substance abuse who presents the emergency department due to psychiatric concern. On Monday she discovered her friend who she was with and used heroin with. Since that time she has had profound grief, uncontrolled tearfulness, nausea, anxiety, passive suicidal ideation, and guilt. The intensity of symptoms is moderate to severe in the course has been worsening. She denies other medical complaints. She denies other specific changes in health, exacerbating, or alleviating factors. She reports last heroin use was on Monday. She denies current other medication use. The patient is obviously quite sad and distraught about finding her friend . She says she is having trouble getting the image out of her mind. As described above, the patient has felt sad, anxious, angry, and guilty. She says she has been crying a lot. She has some feeling that she would be better off , too, but she is having no thoughts of killing herself. She says she has been using meth and marijuana but no more heroin. UDS is positive for amphetamines, marijuana, and benzodiazepines, which she has been given in the ED. She has a previous overnight hospitalization back in July when she became suicidal while intoxicated on alcohol. She was discharged the next day because the suicidal ideation resolved after she sobered up. Home Meds/Allergies Home Medications and Allergies Home Medications Medication Instructions Recorded Confirmed Type No Known Home Medications 01/16/21 01/16/21 History Allergies Allergy/AdvReac Type Severity Reaction Status Date / Time aripiprazole [From Abilify] Allergy ADR-Muscle Verified 08/01/20 00:53 Pain risperidone [From Risperdal] Allergy ADR-Muscle Verified 08/01/20 00:53 Pain PFSH Acute PFSH: Medical History Polysubstance abuse Social History Smoking and tobacco status: unknown if ever smoked Current gender identity: Female Female Reproductive History: Date of last menstrual period: 01/16/21 Vitals/I&O/Wt Last Vital Signs Temp 98.4 F 01/17/21 06:00 Pulse 57 L 01/17/21 06:00 Resp 18 01/17/21 06:00 BP 124/84 01/17/21 06:00 Pulse Ox 96 01/17/21 06:00 Weight last 48 hrs Weight 68.039 kg Weight 68.039 kg Hospital Course Hospital Course The patient was admitted to the neuropsychiatric unit for definitive treatment of these issues. On the unit, she received support for her loss. On the other hand, she found that being around others who were suffering from psychiatric con ditions was not helpful for her. She has to be discharged and stated that she was not having suicidal ideation and was able to keep herself safe. During the hospitalization, patient had routine laboratory studies which were within normal limits except for few outliers. Additionally there was a general medical evaluation which was also within normal limits and revealed no new acute processes. Discharge Summary The patient requested discharge and was informed of our recommendation that she continue to remain in the hospital. Because she was voluntarily admitted and because she had no suicidal ideation, she had the right to check her self out of the hospital. She was discharged AGAINST MEDICAL ADVICE. At the time of discharge, psychosis and lethality were denied. Mood and anxiety were somewhat improved. Patient endorsed a plan to avoid all drugs of abuse and follow-up with her usual providers. Diagnoses at Discharge Discharge Diagnosis (1) Grief reaction: Status: Acute (2) Depressive disorder: Status: Acute (3) Long-term current use of methadone for opiate dependence: Status: Acute Discharge Plan Discharge Patient Disposition: Left Against Medical Advice Prescriptions: No Action No Known Home Medications RF: 0 Discharge Orders: Discharge Order (Routine); Ordered 01/17/21 Ordered By: Seth Christiansen Attestations Medical Necessity Statement*: Psychiatric hospitalization was medically necessary to prevent access to lethal means, to reevaluate medication, and to coordinate a safe discharge. Time Spent in Patient Care*: less than 30 min Specific Discharge Activities: Specific discharge activities: discussing with renal case manager/social workers/dc planners, documenting/other paperwork and evaluating patient/reviewing data Status at Discharge: Cognitive status at discharge: cognitively intact , Behavioral status at discharge: cooperative and can be uncooperative , Functional status at discharge: independent ambulation Overall status at discharge: patient is progressing back to baseline Quality Metrics Clinical Quality Measures: During this hospital stay, did patient experience: None Coding Level of Care Code Acute Ultrasound Technol for Jessica Fwd Diagnoses Grief reaction F43.21 Depressive disorder F32.9 Long-term current use of methadone for opiate dependence F11.20
== END 2021-01-17 09:44 | disposition left against medical advice (07) | DRG 881 ==
LOC: ER 14:24 → NP 16:44
PROVIDERS: Admitting Provider Psychiatry & Neurology Child & Adolescent Psychiatry; Emergency Provider Emergency Medicine; Visit Provider Psychiatry & Neurology Child & Adolescent Psychiatry
DX: F43.21 Adjustment disorder with depressed mood (principal); F11.20 Opioid dependence, uncomplicated; F41.9 Anxiety disorder, unspecified; F43.10 Post-traumatic stress disorder, unspecified; F19.10 Other psychoactive substance abuse, uncomplicated; Z53.29 Procedure and treatment not carried out because of patient's decision for other reasons
CPT/HCPCS: 80053; 80306; 80307; 81025; 84443; 85025; 93005; 99285

== ENCOUNTER 2021-04-20 12:42 | Emergency (ER) | payer SELFPAY ==
[2021-04-20 13:03] VITALS: BP 139/91; PULSE 98; RESP 16; TEMP 36.7; O2SAT 98
--- NOTE | 2021-04-20 13:57 | ED_ITS ---
HPI - General Adult General: Chief complaint: General Medical Stated complaint: rash breakouts n/v and fatigue sob History of Present Illness: HPI narrative: Patient complains of arm and chest redness for the last couple weeks. Patient is an IV drug user last time she used IV drugs which was meth was 3 days ago. Patient complains about burning on her skin. Denies any fever. Says her chest does hurt occasionally. [facility] ED PFSH: Medical History (Updated 04/14/21 @ 13:57 by [facility] Alcohol dependence, uncomplicated Cannabis dependence, uncomplicated Grief Opioid dependence, in remission Other stimulant dependence, in remission Other stimulant dependence, uncomplicated Polysubstance abuse Post-traumatic stress disorder, chronic Psychiatric care Social History Smoking and tobacco status: unknown if ever smoked Current gender identity: Female Female Reproductive History: Date of last menstrual period: 01/16/21 Course Vital Signs: Vital signs: Vital Signs Temperature 98.1 F 04/20/21 13:03 Pulse Rate 98 04/20/21 13:03 Respiratory Rate 16 04/20/21 13:03 Blood Pressure 139/91 04/20/21 13:03 Pulse Oximetry 98 04/20/21 13:03 MDM - General Adult MDM Narrative: Medical decision making narrative: Brief history and physical exam was performed as part of the triage process. Due to current ED wait time patient will be placed in waiting room until a room becomes available. Explained to patient he/she will be seen in order of severity. Patient is currently safe to wait in the waiting room until we can get them placed. Patient informed that if condition worsens at any time to please let the front office assistant know. Lab Data: Labs: Lab Results 04/20/21 04/20/21 04/20/21 14:30 14:30 14:30 WBC 6.3 10^3/uL 10^3/ uL (4.0-10.0) RBC 5.07 10^6/uL 10^6 /uL (4.1-5.3) Hgb 16.1 g/dL H g/dL (11.5-15.3) Hct 48.9 % H % (37.0-47.0) MCV 96.4 fl fl (81-99) MCH 31.8 pg pg (28.0-34.0) MCHC 32.9 g/dL g/dL (30.0-36.0) RDW 12.0 % L % (12.1-15.1) Plt Count 309 10^3/cmm 10^3 /cmm (130-400) MPV 10.6 fL H fL (7.4-10.4) Neut % (Auto) 41.0 % % Lymph % (Auto) 44.8 % % [place] % (Auto) 6.5 % % Eos % (Auto) 6.1 % % Baso % (Auto) 1.4 % % Neut # (Auto) 2.57 10^3/uL 10^3 /uL (1.8-7.7) Lymph # (Auto) 2.8 10^3/uL 10^3/ uL (0.8-4.8) [place] # (Auto) 0.4 10^3/uL 10^3/ uL (0.2-0.9) Eos # (Auto) 0.4 10^3/uL 10^3/ uL (0.0-0.8) Baso # (Auto) 0.1 10^3/uL 10^3/ uL (0.0-0.1) Nucleated RBC % (a uto) 0 % % Nucleated RBCs # 0.0 /100WBC /100W BC ESR 47 mm/hr H mm/hr (0-15) Sodium 135 mmol/L L mmol /L (136-145) Potassium 3.3 mmol/L L mmol /L (3.5-5.1) Chloride 99 mmol/L mmol/L (98-107) Carbon Dioxide 18 mmol/L L mmol/ L (22-29) Anion Gap 21.3 H (5-19) BUN 6 mg/dL mg/dL (6-20) Creatinine 0.5 mg/dL mg/dL (0.5-0.9) GFR Calculation 138.8 mL/min H mL /min (90-130) Glucose 67 mg/dL mg/dL (65-115) Calculated Osmolal ity 276 mOsm/kg L mOs m/kg (285-295) Calcium 9.2 mg/dL mg/dL (8.5-10.5) Total Bilirubin 0.3 mg/dL mg/dL (0.15-1.2) AST 25 U/L U/L (0-32) ALT 18 U/L U/L (0-33) Alkaline Phosphata se 77 IU/L IU/L (35-105) C-Reactive Protein 3.6 mg/L mg/L (0.0-4.9) Total Protein 8.7 g/dL g/dL (6.6-8.7) Albumin 4.4 g/dL g/dL (3.5-5.2) Globulin 4.3 g/dL g/dL (1.3-4.6) Discharge Plan Discharge Prescriptions: No Action sertraline [Zoloft] 50 mg tablet 50 mg PO DAILY Qty: 30 RF: 1 Coding Level of Care Code ED Sales Consultant Residential Manager for Jessica Villa
--- NOTE | 2021-04-20 13:59 | XRR_ITS ---
PROCEDURE INFORMATION: Exam: XR Chest Exam date and time: 04/20/2021 1:59 PM Age: 35 years old Clinical indication: Pain; Angina pectoris; Additional info: Cp TECHNIQUE: Imaging protocol: XR of the chest. Views: 1 view. COMPARISON: CR Chest 2 views* [id number] 03/29/2018 10:51 AM FINDINGS: Lungs: Unremarkable. No consolidation. Pleural spaces: Unremarkable. No pleural effusion. No pneumothorax. Heart/Mediastinum: Unremarkable. No cardiomegaly. Bones/joints: Unremarkable. XR/XR chest 1V portable [id number] IMPRESSION: No acute findings.
[2021-04-20 14:39] LABS: Basophils # 0.1 10^3/uL (0.0-0.1); Basophils % 1.4 %; Eosinophils # 0.4 10^3/uL (0.0-0.8); Eosinophils % 6.1 %; Hematocrit 48.9 % (37.0-47.0); Hemoglobin 16.1 g/dL (11.5-15.3); Lymphocytes # 2.8 10^3/uL (0.8-4.8); Lymphocytes % 44.8 %; Mean Corpuscular HGB Conc 32.9 g/dL (30.0-36.0); Mean Corpuscular Hemoglobin 31.8 pg (28.0-34.0); Mean Corpuscular Volume 96.4 fl (81-99); Mean Platelet Volume 10.6 fL (7.4-10.4); Monocytes # 0.4 10^3/uL (0.2-0.9); Monocytes % 6.5 %; Neutrophils # 2.57 10^3/uL (1.8-7.7); Nucleated Red Blood Cells % 0 %; Platelet Count 309 10^3/cmm (130-400); Red Blood Count 5.07 10^6/uL (4.1-5.3); White Blood Count 6.3 10^3/uL (4.0-10.0)
[2021-04-20 14:52] LABS: Erythrocyte Sedimentation Rate 47 mm/hr (0-15)
[2021-04-20 15:24] LABS: Alanine Aminotransferase 18 U/L (0-33); Albumin Level 4.4 g/dL (3.5-5.2); Alkaline Phosphatase 77 IU/L (35-105); Aspartate Amino Transferase 25 U/L (0-32); Blood Urea Nitrogen 6 mg/dL (6-20); C Reactive Protein 3.6 mg/L (0.0-4.9); Calcium 9.2 mg/dL (8.5-10.5); Carbon Dioxide 18 mmol/L (22-29); Chloride 99 mmol/L (98-107); Globulin 4.3 g/dL (1.3-4.6); Glomerular Filtration Rate 138.8 mL/min (90-130); Glucose 67 mg/dL (65-115); Osmolality Calculated 276 mOsm/kg (285-295); Sodium 135 mmol/L (136-145); Total Bilirubin 0.3 mg/dL (0.15-1.2); Total Protein 8.7 g/dL (6.6-8.7)
[2021-04-20 15:25] LABS: Anion Gap 21.3 (5-19); Potassium 3.3 mmol/L (3.5-5.1)
--- NOTE | 2021-04-20 16:45 | W.ED.GENADLT ---
HPI - General Adult General: Chief complaint: General Medical Stated complaint: rash breakouts n/v and fatigue sob Time Seen by Provider: 04/20/21 16:25 History of Present Illness: HPI narrative: 35-year-old female presents to the emergency room with complaint of generalized weakness. She intermittently states she will get swelling in her hands and get what feels like a fever. She has a known history of IV drug abuse uses IV methamphetamine states she last used 3 days ago. She has had some episodes intermittently vomiting denies any hematochezia melena hematemesis or coffee-ground emesis. No dysuria urgency or frequency or abdominal pain. Patient expresses pain in extremities disproportionate to exam. Onset (ago): week(s) (3) Location: left, right and upper extremity Radiation: non-radiation Severity: mild Quality: aching Pain Consistency: intermittent Relieving factors: none Exacerbating factors: none Associated symptoms: Reports fevers/chills; Deny chest pain, confusion, cough, diaphoresis, decreased appetite, dyspnea, headache(s), malaise, nausea, rash, palpitations, seizures, short of breath, syncope, vomiting or weakness Treatments prior to arrival: none Review of Systems Const: Denies: malaise or diaphoresis ENMT: Denies: throat pain, ear or mastoid pain, nasal discharge or nasal congestion Card: Denies: chest pain, palpitations or syncope Resp: Denies: dyspnea GI: Denies: nausea or vomiting : Denies: flank pain, difficulty voiding, dysuria, urinary frequency or urinary urgency Skin/Breast: Denies: rash Neuro: Denies: headache(s) or confusion PFS ED PFSH: Medical History Alcohol dependence, uncomplicated Cannabis dependence, uncomplicated Grief Opioid dependence, in remission Other stimulant dependence, in remission Other stimulant dependence, uncomplicated Polysubstance abuse Post-traumatic stress disorder, chronic Psychiatric care Social History Smoking and tobacco status: unknown if ever smoked Current gender identity: Female Female Reproductive History: Date of last menstrual period: 01/16/21 Physical Exam Const: COMMON NORMALS: no acute distress GENERAL APPEARANCE: cooperative and comfortable ORIENTATION/CONSCIOUSNESS: Yes awake, Yes oriented to person, Yes oriented to place and Yes oriented to time HENMT: COMMON NORMALS: normocephalic and atraumatic HEAD & SCALP: normocephalic and atraumatic Neck/C-Spine: COMMON NORMALS: no JVD Resp: COMMON NORMALS: normal respiratory effort, No retractions, No use of accessory muscles and clear to auscultation bilaterally AUSCULTATION: clear to auscultation bilaterally Cardio: COMMON NORMALS: no JVD, regular rate, regular rhythm and No murmurs present (Cardio) RATE: regular rate RHYTHM: regular rhythm GI: COMMON NORMALS: Soft to palpation and No hepatosplenomegaly present AUSCULTATION: Yes normoactive bowel sounds PALPATION: Yes Soft to palpation, No Tenderness to palpation present (GI), No Guarding due to palpation present (GI) and Yes No hepatosplenomegaly present Extremity: COMMON NORMALS: normal to inspection, capillary refill normal, no clubbing, cyanosis or edema, no calf tenderness and no pedal edema OTHER: No epitrochlear node no axillary nodes no joint effusions at the elbow wrist, carpal, MP, or interphalangeal joints. Neuro: SENSORIUM/ORIENTATION: Yes oriented to person, Yes oriented to place and Yes oriented to time Skin: COMMON NORMALS: no rashes or lesions noted GENERAL SKIN EXAM: no rashes or lesions noted Course Vital Signs: Vital signs: Vital Signs Temperature 98.1 F 04/20/21 13:03 Pulse Rate 92 04/20/21 17:18 Respiratory Rate 16 04/20/21 16:55 Blood Pressure 134/72 04/20/21 17:18 Pulse Oximetry 98 04/20/21 17:18 MDM - General Adult MDM Narrative: Medical decision making narrative: Mild elevation of the sed rate but there is no elevation of white count she has no rash no joint effusions. She may have some autoimmune issues there is nothing apparent at this time recommend that she follow-up with primary care will ask case management get her set up for that. Because of her history of IV drug use it is advisable to start her on oral antibiotics until cultures are completed. Lab Data: Labs: Lab Results 04/20/21 04/20/21 04/20/21 14:30 14:30 14:30 WBC 6.3 10^3/uL 10^3/ uL (4.0-10.0) RBC 5.07 10^6/uL 10^6 /uL (4.1-5.3) Hgb 16.1 g/dL H g/dL (11.5-15.3) Hct 48.9 % H % (37.0-47.0) MCV 96.4 fl fl (81-99) MCH 31.8 pg pg (28.0-34.0) MCHC 32.9 g/dL g/dL (30.0-36.0) RDW 12.0 % L % (12.1-15.1) Plt Count 309 10^3/cmm 10^3 /cmm (130-400) MPV 10.6 fL H fL (7.4-10.4) Neut % (Auto) 41.0 % % Lymph % (Auto) 44.8 % % [place] % (Auto) 6.5 % % Eos % (Auto) 6.1 % % Baso % (Auto) 1.4 % % Neut # (Auto) 2.57 10^3/uL 10^3 /uL (1.8-7.7) Lymph # (Auto) 2.8 10^3/uL 10^3/ uL (0.8-4.8) [place] # (Auto) 0.4 10^3/uL 10^3/ uL (0.2-0.9) Eos # (Auto) 0.4 10^3/uL 10^3/ uL (0.0-0.8) Baso # (Auto) 0.1 10^3/uL 10^3/ uL (0.0-0.1) Nucleated RBC % (a uto) 0 % % Nucleated RBCs # 0.0 /100WBC /100W BC ESR 47 mm/hr H mm/hr (0-15) Sodium 135 mmol/L L mmol /L (136-145) Potassium 3.3 mmol/L L mmol /L (3.5-5.1) Chloride 99 mmol/L mmol/L (98-107) Carbon Dioxide 18 mmol/L L mmol/ L (22-29) Anion Gap 21.3 H (5-19) BUN 6 mg/dL mg/dL (6-20) Creatinine 0.5 mg/dL mg/dL (0.5-0.9) GFR Calculation 138.8 mL/min H mL /min (90-130) Glucose 67 mg/dL mg/dL (65-115) Calculated Osmolal ity 276 mOsm/kg L mOs m/kg (285-295) Calcium 9.2 mg/dL mg/dL (8.5-10.5) Total Bilirubin 0.3 mg/dL mg/dL (0.15-1.2) AST 25 U/L U/L (0-32) ALT 18 U/L U/L (0-33) Alkaline Phosphata se 77 IU/L IU/L (35-105) C-Reactive Protein 3.6 mg/L mg/L (0.0-4.9) Total Protein 8.7 g/dL g/dL (6.6-8.7) Albumin 4.4 g/dL g/dL (3.5-5.2) Globulin 4.3 g/dL g/dL (1.3-4.6) Hepatitis A IgM Ab Hep Bs Antigen Hep B Core IgM Ab Hepatitis C Antibo dy 04/20/21 16:31 WBC RBC Hgb Hct MCV MCH MCHC RDW Plt Count MPV Neut % (Auto) Lymph % (Auto) [place] % (Auto) Eos % (Auto) Baso % (Auto) Neut # (Auto) Lymph # (Auto) [place] # (Auto) Eos # (Auto) Baso # (Auto) Nucleated RBC % (a uto) Nucleated RBCs # ESR Sodium Potassium Chloride Carbon Dioxide Anion Gap BUN Creatinine GFR Calculation Glucose Calculated Osmolal ity Calcium Total Bilirubin AST ALT Alkaline Phosphata se C-Reactive Protein Total Protein Albumin Globulin Hepatitis A IgM Ab Non-reactive (Nonreactive) Hep Bs Antigen Non-reactive (Nonreactive) Hep B Core IgM Ab Non-reactive (Nonreactive) Hepatitis C Antibo dy Reactive H (Nonreactive) Discharge Plan Discharge Patient Disposition: Home Clinical Impression: Elevated erythrocyte sedimentation rate, Fever, Active intravenous drug use Condition: Stable Prescriptions: New Bactrim DS 800-160 mg tablet 1 tab PO BID 10 Days Qty: 20 RF: 0 No Action sertraline [Zoloft] 50 mg tablet 50 mg PO DAILY Qty: 30 RF: 1 Discharge Orders: Discharge ED (Routine); Ordered 04/20/21 Ordered By: Drew Koo Patient Instructions: Opioid Safety Activity Restrictions/Additional Instructions: marketing development manager will make arrangements for you to see primary care physician. Start oral antibiotics prescribed today. Continue until culture results have returned. If you have uncontrolled fever or worsening symptoms return. Recommend abstaining from IV drug use. Coding Level of Care Code ED Linux Server Engineer for Jessica Villa Exam Comprehensive
[2021-04-20 16:55] VITALS: BP 139/91; PULSE 98; RESP 16; O2SAT 98
[2021-04-20 17:18] VITALS: BP 134/72; PULSE 92; O2SAT 98
[2021-04-20 17:18] LABS: Hepatitis A Antibody IgM Non-Reactive (Nonreactive); Hepatitis B Core IgM Non-Reactive (Nonreactive); Hepatitis B Surface Antigen Non-Reactive (Nonreactive); Hepatitis C Virus Antibody Reactive (Nonreactive)
--- NOTE | 2021-04-21 13:52 | DCPLANNER ---
pre school manager had message to speak with patient about getting established with a primary care physician. pre school manager spoke with patient, she stated that she would like to get established with a primary care physician. pre school manager called [facility], for Elena Kerr NP. pre school manager spoke with Lou, gave clinic patients information. A follow up appointment was scheduled for Monday, April 26, 2021 at 1:00 with Elena Kerr. Clinic will call patient with appointment information.
--- NOTE | 2021-05-04 08:28 | DCPLANNER ---
Patient had a follow up appointment scheduled for 04.26.21 with Elena Kerr at [facility] - patient did not attend appointment.
== END 2021-04-20 17:19 | disposition home or self-care (01) ==
PROVIDERS: Nurse Practitioner Family; Emergency Provider Family Medicine
DX: R50.9 Fever, unspecified (principal); F15.90 Other stimulant use, unspecified, uncomplicated; R70.0 Elevated erythrocyte sedimentation rate
CPT/HCPCS: 71045; 80053; 80074; 85025; 85651; 86140; 87040; 99283

== ENCOUNTER 2021-07-17 02:20 | Inpatient (IN) | payer MEDICAID, SELFPAY ==
[2021-07-17 02:25] VITALS: BP 126/83; PULSE 96; RESP 18; TEMP 36.8; O2SAT 97; BMI 25.7
[2021-07-17 02:45] LABS: Basophils # 0.1 10^3/uL (0.0-0.1); Eosinophils # 0.2 10^3/uL (0.0-0.8); Eosinophils % 1.8 %; Hematocrit 42.2 % (37.0-47.0); Hemoglobin 14.1 g/dL (11.5-15.3); Lymphocytes # 2.7 10^3/uL (0.8-4.8); Lymphocytes % 33.2 %; Mean Corpuscular HGB Conc 33.4 g/dL (30.0-36.0); Mean Corpuscular Hemoglobin 31.5 pg (28.0-34.0); Mean Corpuscular Volume 94.2 fl (81-99); Mean Platelet Volume 10.3 fL (7.4-10.4); Monocytes # 0.6 10^3/uL (0.2-0.9); Monocytes % 6.7 %; Neutrophils # 4.71 10^3/uL (1.8-7.7); Neutrophils % 57.1 %; Nucleated Red Blood Cells % 0 %; Platelet Count 308 10^3/cmm (130-400); Red Blood Count 4.48 10^6/uL (4.1-5.3); Red Cell Distribution Width 14.1 % (12.1-15.1); White Blood Count 8.3 10^3/uL (4.0-10.0)
[2021-07-17 03:11] LABS: Acetaminophen < 5.0 ug/mL (10-30); Alanine Aminotransferase 19 U/L (0-33); Albumin Level 4.4 g/dL (3.5-5.2); Alkaline Phosphatase 70 IU/L (35-105); Anion Gap 15.2 (5-19); Aspartate Amino Transferase 26 U/L (0-32); Blood Urea Nitrogen 10 mg/dL (6-20); Calcium 10.1 mg/dL (8.5-10.5); Carbon Dioxide 23 mmol/L (22-29); Chloride 102 mmol/L (98-107); Globulin 3.4 g/dL (1.3-4.6); Glomerular Filtration Rate 80.7 mL/min (90-130); Glucose 109 mg/dL (65-115); Osmolality Calculated 284 mOsm/kg (285-295); Potassium 3.2 mmol/L (3.5-5.1); Salicylate < 0.3 mg/dL (3-10); Sodium 137 mmol/L (136-145); Total Bilirubin 0.3 mg/dL (0.15-1.2); Total Protein 7.8 g/dL (6.6-8.7)
[2021-07-17 03:34] LABS: Alcohol Level 69 mg/dL (0-10)
--- NOTE | 2021-07-17 05:13 | ED.C_ITS ---
HPI - Psych General: Chief Complaint: Psychiatric Symptoms Stated Complaint: SI Time Seen by Provider: 07/17/21 02:53 Source: patient History of Present Illness: 35 year old female with a history of substance abuse. She presents telling my staff that ?I am ready to kill myself?. She will not elaborate on a plan. She is here willingly. She will admit to alcohol use, but no other substances. She denies recent illness including cough, fever, diarrhea, etc. MD complaint: suicidal ideation, feels depressed and altered mental status Onset (ago): day(s) Duration: constant History of same: No Relieving factors: none Exacerbating factors: alcohol and drug use Context: recent alcohol abuse and recent drug abuse Associated psychiatric symptoms: depression and suicidal ideation Associated symptoms: Deny auditory hallucinations or visual hallucinations If self harm: admits thoughts of self harm Review of Systems Psych: Denies: visual hallucinations or auditory hallucinations [facility] ED PFSH: Medical History Alcohol dependence, uncomplicated Cannabis dependence, uncomplicated Grief Opioid dependence, in remission Other stimulant dependence, in remission Other stimulant dependence, uncomplicated Polysubstance abuse Post-traumatic stress disorder, chronic Psychiatric care Social History Smoking and tobacco status: unknown if ever smoked Current gender identity: Female Female Reproductive History: Date of last menstrual period: 01/16/21 Physical Exam Const: GENERAL APPEARANCE: cooperative and lethargic; not frail appearing ORIENTATION/CONSCIOUSNESS: Yes oriented to person, Yes oriented to place and Yes lethargic HENMT: COMMON NORMALS: normocephalic HEAD & SCALP: normal to inspection and normocephalic FACE & SINUS: face symmetric Eye: COMMON NORMALS: Equal, round and reactive pupils present and EOMs intact bilaterally PUPIL: Yes Equal, round and reactive pupils present Neck/C-Spine: GENERAL: Yes normal visual inspection and Yes trachea midline Resp: COMMON NORMALS: normal respiratory effort, No retractions and No use of accessory muscles Cardio: COMMON NORMALS: regular rate and regular rhythm RATE: regular rate RHYTHM: regular rhythm GI: COMMON NORMALS: Normal to inspection, nondistended, normoactive bowel sounds present Neuro: RAVINDER COMA SCALE: document GCS findings Ravinder coma scale eye opening: To sound [place] coma scale verbal response: Orientated [place] coma scale motor response: Obey commands Ravinder coma scale total score: 14 SENSORIUM/ORIENTATION: Yes oriented to person, Yes oriented to place and Yes lethargic CRANIAL NERVES: Yes CN normal except as noted Psych: APPEARANCE: Yes unkempt ATTITUDE: Yes calm SPEECH: Yes slow MOOD & AFFECT: Yes depressed mood THOUGHT CONTENT: Yes Suicidality present ATTENTION/CONCENTRATION: Yes attention grossly impaired Course Vital Signs: Vital signs: Vital Signs Temperature 98.8 F 07/17/21 14:00 Pulse Rate 83 07/17/21 14:00 Respiratory Rate 17 07/17/21 14:00 Blood Pressure 105/63 07/17/21 14:00 Pulse Oximetry 100 07/17/21 14:00 MDM - Psych Medical Decision Making This patient requests neuropsychiatry admission due to suicidal ideations. She will not elaborate on a plan. She is a bit lethargic, but appropriate otherwise. Her vital signs are good. Her alcohol level is 69. Her potassium was low, and is repleted. Urine drug screen is pending. Other labs are stable. Spoke with psychiatry, they are willing to admit. Patient is voluntary. she has been cooperative here. Lab Data : 07/17/21 02:40 07/17/21 02:40 Laboratory Results WBC 8.3 10^3/uL (4.0-10.0) 07/17/21 02:40 RBC 4.48 10^6/uL (4.1-5.3) 07/17/21 02:40 Hgb 14.1 g/dL (11.5-15.3) 07/17/21 02:40 Hct 42.2 % (37.0-47.0) 07/17/21 02:40 MCV 94.2 fl (81-99) 07/17/21 02:40 MCH 31.5 pg (28.0-34.0) 07/17/21 02:40 MCHC 33.4 g/dL (30.0-36.0) 07/17/21 02:40 RDW 14.1 % (12.1-15.1) 07/17/21 02:40 Plt Count 308 10^3/cmm (130-400) 07/17/21 02:40 MPV 10.3 fL (7.4-10.4) 07/17/21 02:40 Neut % (Auto) 57.1 % 07/17/21 02:40 Lymph % (Auto) 33.2 % 07/17/21 02:40 [place] % (Auto) 6.7 % 07/17/21 02:40 Eos % (Auto) 1.8 % 07/17/21 02:40 Baso % (Auto) 1.0 % 07/17/21 02:40 Neut # (Auto) 4.71 10^3/uL (1.8-7.7) 07/17/21 02:40 Lymph # (Auto) 2.7 10^3/uL (0.8-4.8) 07/17/21 02:40 [place] # (Auto) 0.6 10^3/uL (0.2-0.9) 07/17/21 02:40 Eos # (Auto) 0.2 10^3/uL (0.0-0.8) 07/17/21 02:40 Baso # (Auto) 0.1 10^3/uL (0.0-0.1) 07/17/21 02:40 Nucleated RBC % (auto) 0 % 07/17/21 02:40 Nucleated RBCs # 0.0 /100WBC 07/17/21 02:40 Sodium 137 mmol/L (136-145) 07/17/21 02:40 Potassium 3.2 mmol/L (3.5-5.1) L 07/17/21 02:40 Chloride 102 mmol/L (98-107) 07/17/21 02:40 Carbon Dioxide 23 mmol/L (22-29) 07/17/21 02:40 Anion Gap 15.2 (5-19) 07/17/21 02:40 BUN 10 mg/dL (6-20) 07/17/21 02:40 Creatinine 0.8 mg/dL (0.5-0.9) 07/17/21 02:40 GFR Calculation 80.7 mL/min (90-130) L 07/17/21 02:40 Glucose 109 mg/dL (65-115) 07/17/21 02:40 Calculated Osmolality 284 mOsm/kg (285-295) L 07/17/21 02:40 Calcium 10.1 mg/dL (8.5-10.5) 07/17/21 02:40 Total Bilirubin 0.3 mg/dL (0.15-1.2) 07/17/21 02:40 AST 26 U/L (0-32) 07/17/21 02:40 ALT 19 U/L (0-33) 07/17/21 02:40 Alkaline Phosphatase 70 IU/L (35-105) 07/17/21 02:40 Total Protein 7.8 g/dL (6.6-8.7) 07/17/21 02:40 Albumin 4.4 g/dL (3.5-5.2) 07/17/21 02:40 Globulin 3.4 g/dL (1.3-4.6) 07/17/21 02:40 Salicylates < 0.3 mg/dL (3-10) L 07/17/21 02:40 Acetaminophen < 5.0 ug/mL (10-30) L 07/17/21 02:40 Ethyl Alcohol 69 mg/dL (0-10) H 07/17/21 02:40 Discharge Plan Discharge Patient Disposition: Admitted As Inpatient Admit Provider: Barron Atkinson Clinical Impression: Suicidal ideation, Substance abuse Condition: Stable Coding Level of Care Code ED Sales Professional Bilingual for Jessica Villa
[2021-07-17] MEDS: potassium chloride ER 20 mEq Tablet 40 MEQ PO (05:32)
[2021-07-17 05:46] LABS: HCG Qualitative Urine. Negative (Negative)
[2021-07-17 05:52] LABS: Add Urine Microscopic? YES; Bilirubin Urine Neg (Negative); Blood Urine Neg (Negative); Glucose Urine UA Norm (Normal); Ketones Urine 1+ (Negative); Leukocyte Esterase Urine 1+ (Negative); Nitrate Urine Positive (Negative); Protein Urine Trace (Negative); Urine Color Yellow (Yellow); Urobilinogen Urine 1 mg/dL (Negative); pH Urine 5 (5-7)
[2021-07-17 05:55] LABS: Add Urine Culture? No; Bacteria Urine 3+ /hpf; RBC Urine 0-4 /hpf (0-2); Squamous Epithelial Cell Urine 15-25 /hpf (0-5)
[2021-07-17 05:56] LABS: Amphetamines Screen Urine Positive (Negative); Barbiturates Screen Urine Positive (Negative); Benzodiazepines Screen Urine Positive (Negative); Cocaine Screen Urine Negative (Negative); Opiate Screen Urine Negative (Negative); PCP Screen Urine Negative (Negative); THC Screen Urine Positive (Negative)
--- NOTE | 2021-07-17 06:11 | PC.NURSE ---
patient presents to ED with SI, polysubstance abuse. reports she took LSD tonight. she also reports she injects IV methamphetamine and drinks alcohol. she has been admitted for psych over the years multiple times for these issues. patient states I just want to fucking kill myself . patient denies recent stressors, denies HI. reports she cut herself on her finger in a suicide attempt today. denies hallucinations at this time. she states she had a past suicide attempt of cutting herself. she has what appears to be a burn on her right chest approximately a quarter in size. she also has bruising on her upper left thigh. patient affect is guarded, withdrawn, limited eye contact, delayed responses with mumbled answers. patient does not want to answer questions. she was given potassium in the ED for 3.3 K+ level. patient denies pain.
--- NOTE | 2021-07-17 06:15 | PC.ADMIT ---
[address] Admission Note: patient presents to ED with SI, polysubstance abuse. reports she took LSD tonight. she also reports she injects IV methamphetamine and drinks alcohol. she has been admitted for psych over the years multiple times for these issues. patient states I just want to fucking kill myself . patient denies recent stressors, denies HI. reports she cut herself on her finger in a suicide attempt today. denies hallucinations at this time. she states she had a past suicide attempt of cutting herself. she has what appears to be a burn on her right chest approximately a quarter in size. she also has bruising on her upper left thigh. patient affect is guarded, withdrawn, limited eye contact, delayed responses with mumbled answers. patient does not want to answer questions. she was given potassium in the ED for 3.3 K+ level. patient denies pain. her UA indicates a possible UTI, her UDS is positive for amphetamines, barbituates, benzodiazepines, and THC. The patient,Janice Nguyen,35 y/o, was given written information regarding hospital policies, unit procedures and contact persons. Patient's smoking status: unknown if ever smoked. Vital Signs - 8 hr 07/17/21 02:25 Temperature 98.2 F Pulse Rate 96 Respiratory Rate 18 Blood Pressure 126/83 Pulse Oximetry 97
--- NOTE | 2021-07-17 06:47 | PC.NURSE ---
Patient crossed her arms across her body when she was asked to take her vitals. The LOG POND WORKER attempted again to redirect the patient and ask again and the patient turned on her side and said foul words.
[2021-07-17] MEDS: hyDROXYzine 25 mg Capsule 50 MG PO (08:58)
[2021-07-17] MEDS: nicotine 2 mg Gum BUCCAL ×2 (08:58→14:50)
--- NOTE | 2021-07-17 09:04 | PC.NURSE ---
Am assessment note patient very guarded, when asked assessment questions, patient just shrugs shoulders and refused to answer. Patient did not answer any assessment questions, such as if she felt SI, HI or was experiencing AVH. Patient very disheveled with poor hygiene. Given Vistaril for anxiety as patient did have a rapid apical hr. She did consume breakfast in the day room.
[2021-07-17 14:00] VITALS: BP 105/63; PULSE 83; RESP 17; TEMP 37.1; O2SAT 100
[2021-07-17] MEDS: acetaminophen 325 mg Tablet 650 MG PO (14:48)
[2021-07-17] MEDS: OLANZapine 5 mg ODT PO (14:48)
--- NOTE | 2021-07-17 15:02 | PC.NURSE ---
Prn note Patient came to nurse's station, very irritable, she states i am very irritable, i am going to end up leaving. Zyprexa given for anxiety.
--- NOTE | 2021-07-17 15:36 | P.NPUHP_ITS ---
Providers/Chief Complaint Admitting Physician: Barron Atkinson MD Chief Complaint: si, lsd in system HPI NPU History of Present Illness Janice Nguyen is a 35 year old female who presented to the emergency dep artment with the following report: 35 year old female with a history of substance abuse. She presents telling my staff that ?I am ready to kill myself?. She will not elaborate on a plan. She is here willingly. She will admit to alcohol use, but no other substances. She denies recent illness including cough, fever, diarrhea, etc. MD complaint: suicidal ideation, feels depressed and altered mental status Onset (ago): day(s) Duration: constant History of same: No Relieving factors: none Exacerbating factors: alcohol and drug use Context: recent alcohol abuse and recent drug abuse Associated psychiatric symptoms: depression and suicidal ideation Associated symptoms: Deny auditory hallucinations or visual hallucinations If self harm: admits thoughts of self harm. She was admitted to the neuropsychiatric unit for definitive treatment of those issues. She presented today as a resistant historian irritable with the question and not really open to answering questions. This larsen her 10th ho spitalization at [facility] since she started mental health treatment in the [facility] system back in 2005. This is her third hospitalization in the last 2 years. After a fairly limited interview where she was not answering questions and basically saying I do not know to other questions she approached the staff about signing out AMA. Shortly thereafter she broke down and discussed her sign ificant benzodiazepine withdrawal. She presented with a blood alcohol of 69 and a UDS that was positive for cannabis, barbiturates, amphetamines and benzodiazepines. She was open to the initiation of a CIWA protocol and some Ativan for her withdrawal symptoms we discussed the risk-benefit and alte rnatives of her staying in considering treatment and she understood agreed proceed as is documented in this note. An excerpt from her last inpatient stay is included below for context. Per her 01/17/2021 [facility] inpatient psychiatric evaluation: As was stated in the consultation, Janice Nguyen is a 35 year old female with reported history of major depressive disorder, anxiety disorder, history of PTSD who presented to the ED for evaluation and treatment after a traumatic event.? The note from the ED states: HPI Narrative: Ms. Nguyen is a 35-year-old lady with significant past medical history of depressive disorder and substance abuse who presents the emergency department due to psychiatric concern. On Monday she discovered her friend who she was with and used heroin with. Since that time she has had profound grief, uncontrolled tearfulness, nausea, anxiety, passive suicidal ideation, and guilt. The intensity of symptoms is moderate to severe in the course has been worsening. She denies other medical complaints. She denies other specific changes in health, exacerbating, or alleviating factors. She reports last heroin use was on Monday. She denies current other medication use. The patient is obviously quite sad and distraught about finding her friend .? She says she is having trouble getting the image out of her mind.? As erica cribed above, the patient has felt sad, anxious, angry, and guilty.? She says she has been crying a lot.? She has some feeling that she would be better off , too, but she is having no thoughts of killing herself.? She says she has been using meth and marijuana but no more heroin.? UDS is positive for amphetamines, marijuana, and benzodiazepines, which she has been given in the ED.? She has a previous overnight hospitalization back in July when she became suicidal while intoxicated on alcohol.? She was discharged the next day because the suicidal ideation resolved after she sobered up. Meds NPU Home Medications Medication Instructions Recorded Confirmed Last Taken Type sertraline 50 mg tablet (Zoloft) 50 mg PO DAILY #30 tab 04/14/21 07/17/21 Unknown Rx Allergies Allergy/AdvReac Type Severity Reaction Status Date / Time haloperidol [From Haldol] Allergy Intermediate tongue Verified 04/20/21 13:06 swells aripiprazole [From Abilify] Allergy ADR-Muscle Verified 04/20/21 13:06 Pain risperidone [From Risperdal] Allergy ADR-Muscle Verified 04/20/21 13:06 Pain PFSH NPU PFSH: Medical History Alcohol dependence, uncomplicated Cannabis dependence, uncomplicated Grief Opioid dependence, in remission Other stimulant dependence, in remission Other stimulant dependence, uncomplicated Polysubstance abuse Post-traumatic stress disorder, chronic Psychiatric care Social History (Reviewed 07/17/21 @ 17:31 by CHARLES Ahumada Smoking and tobacco status: unknown if ever smoked Current gender identity: Female Mental Status Exam MSE Comments: This is a well-nourished well-developed white female in hospital scrubs with limited grooming and eye contact. No abnormal movements except for psychomotor retardation. Mostly uncooperative with exam in moderate distress. Speech was limited and decreased rate and volume. Mood not described affect irritable thought process organized. Thought content: Patient did not report suicidal or homicidal ideation, there were no delusions reported or noted, she denied auditory visualizations. Attention and concentration were limited and memory was unreliable but none were formally tested. She is alert and oriented x3. Insight and judgment are impaired, impulse control is impaired. Vitals/I&O/Wt Last Vital Signs Temp 98.8 F 07/17/21 14:00 Pulse 83 07/17/21 14:00 Resp 17 07/17/21 14:00 BP 105/63 07/17/21 14:00 Pulse Ox 100 07/17/21 14:00 Weight last 48 hrs Weight 68.039 kg Weight 68.039 kg Data NPU : 07/17/21 02:40 07/17/21 02:40 A&P Assessment and plan (1) Suicidal ideation: Status: Acute (2) Amphetamine use disorder, severe: Status: Acute (3) Severe benzodiazepine use disorder: Status: Acute (4) Cannabis use disorder, severe, dependence: Status: Acute (5) Alcohol use disorder: Status: Acute (6) Post-traumatic stress disorder, chronic: Status: Acute (7) Depressive disorder: Status: Acute Plan This is a 35-year-old white female with a long history of mental health and addiction issues who presents with active addiction with alcohol, cannabis, amphetamines, benzodiazepines per UDS in active withdrawal and ambivalent about treatment. 1. Continue current medication. 2. Continue every 15 minute checks for safety. 3. Encourage individual, group and milieu therapies. 4. Encourage sober living treatment after discharge at the highest level of care to which she is willing to commit. 5. Initiate CIWA protocol. Involuntary Hold Information 96 Hour Hold: 96 Hour Involuntary Admission: No Attestations NPU Medical Necessity Statement*: Inpatient hospitalization is medically necessary and the clinically appropriate intervention at this time. We will monitor medication to make changes as indicated. Patient will be in the hospital for over two midnights. Likely length of stay 3 to 5 days. Coding Level of Care Code Acute Aquatics Specialist for g Fwd Diagnoses Suicidal ideation R45.851 Amphetamine use disorder, severe F15.20 Severe benzodiazepine use disorder F13.20 Cannabis use disorder, severe, dependence F12.20 Alcohol use disorder Post-traumatic stress disorder, chronic F43.12 Depressive disorder F32.9
--- NOTE | 2021-07-17 16:55 | PC.NURSE ---
Shift note Patient has isolated and slept most of the shift. She has been very irritable when she has been awake. She received Vistaril, Tylenol, Zyprexa and nicotine gum this shift.
--- NOTE | 2021-07-17 18:16 | PC.NURSE ---
Prn note Patient is very tearful, she is noted to be very anxious. She contracts for safety and is willing to stay the night in the unit. Physician notified. Orders received to start CIWA protocol for benzos.
[2021-07-17] MEDS: LORazepam 2 mg Tablet PO (18:36)
[2021-07-17 20:11] VITALS: BP 114/77; PULSE 72; RESP 18; TEMP 36.6; O2SAT 98
[2021-07-18 02:53] VITALS: BMI 25.7
[2021-07-18 06:00] VITALS: BP 144/75; PULSE 58; RESP 18; TEMP 36.6; O2SAT 99
[2021-07-18] MEDS: thiamine 100 mg Tablet PO (08:06)
[2021-07-18] MEDS: folic acid 1 mg Tablet PO (08:06)
[2021-07-18] MEDS: acetaminophen 325 mg Tablet 650 MG PO (08:06)
[2021-07-18] MEDS: multivitamin therapeutic Tablet 1 TAB PO (08:06)
[2021-07-18] MEDS: LORazepam 2 mg Tablet PO ×2 (08:07→10:44)
[2021-07-18] MEDS: nicotine 2 mg Gum BUCCAL (09:02)
--- NOTE | 2021-07-18 09:17 | PC.NURSE ---
Behaviors This RN went to room to complete AM assessment. Asked how she was, patient began to yell and cuss. States, I'm fucking sick, I need opoids, I'm sick as hell. Visually observed patient is diaphoretic and reports nausea. Very agitated. Report pain is 10/10 all over. CIWA completed and scored 18. Notified med nurse, administered Ativan per protocol, see MAR for details. Asked if she was having any suicidal or homicidal thoughts, patient told this RN, You can fucking leave and shut my door. Patient in bed and safe at this time. This RN left room and gave patient space. 30 minutes later and after Ativan was administered this RN went back to patient room to assess. Presents with cover over head. Informed patient that if she needed anything or the medication was not effective to let staff know. She states OK and continued to lay in bed with blankets over head. Agitation with minimal improvement noted.
--- NOTE | 2021-07-18 12:19 | PC.NURSE ---
Yelling down alvarado that she wants to fucking leave. Informed by multiple nurses that since she received Ativan she would need to be monitored for awhile and the doctor wanted to see her prior to her leaving. Continues to be agitated and uncooperative.
[2021-07-18 12:58] VITALS: BP 144/75; PULSE 58; RESP 18; TEMP 36.6; O2SAT 99
[2021-07-18 13:01] VITALS: BP 144/75; PULSE 58; RESP 18; TEMP 36.6; O2SAT 99
--- NOTE | 2021-07-18 13:02 | PC.NURSE ---
PT REQUESTING TO LEAVE AMA AT THIS TIME. VISITED WITH PT AND ENCOURAGED PT TO STAY. PT DECLINING TO STAY AT THIS TIME. PT IRRITABLE AND SHORT WITH STAFF DURING DISCHARGE PAPERWORK. DOES DENY SI AND HI. AMA RISK ASSESSMENT COMPLETED AT THIS TIME. EDUCATION PROVIDED FOR FUTURE SAFETY. ALL PERSONAL BELONGINGS RETURNED TO PT UPON DISCHARGE. PT DECLINED HAVING A RIDE, STATED THAT SHE WALKED HERE AND WILL WALK HOME.
--- NOTE | 2021-07-18 13:05 | P.NPUDS_ITS ---
Diagnoses at Discharge Discharge Diagnosis (1) Suicidal ideation: Status: Acute (2) Amphetamine use disorder, severe: Status: Acute (3) Severe benzodiazepine use disorder: Status: Acute (4) Cannabis use disorder, severe, dependence: Status: Acute (5) Alcohol use disorder: Status: Acute (6) Post-traumatic stress disorder, chronic: Status: Acute (7) Depressive disorder: Status: Acute Reason for Visit Reason for Visit: si, lsd in system Brief History: Janice Nguyen is a 35 year old female who presented to the emergency department with the following report: 35 year old female with a history of substance abuse. She presents telling my staff that ?I am ready to kill myself?. She will not elaborate on a plan. She is here willingly. She will admit to alcohol use, but no other substances. She denies recent illness including cough, fever, diarrhea, etc. MD complaint: suicidal ideation, feels depressed and altered mental status Onset (ago): day(s) Duration: constant History of same: No Relieving factors: none Exacerbating factors: alcohol and drug use Context: recent alcohol abuse and recent drug abuse Associated psychiatric symptoms: depression and suicidal ideation Associated symptoms: Deny auditory hallucinations or visual hallucinations If self harm: admits thoughts of self harm. She was admitted to the neuropsychiatric unit for definitive treatment of those issues.? She presented today as a resistant historian irritable with the question and not really open to answering questions.? This larsen her 10th hospitalization at [facility] since she started mental health treatment in the [facility] system back in 2005.? This is her third hospitalization in the last 2 years.? After a fairly limited interview where she was not answering questions and basically saying I do not know to other questions she approached the staff about signing out AMA.? Shortly thereafter she broke down and discussed her significant benzodiazepine withdrawal.? She presented with a blood alcohol of 69 and a UDS that was positive for cannabis, barbiturates, amphetamines and benzodiazepines.? She was open to the initiation of a CIWA pr otocol and some Ativan for her withdrawal symptoms we discussed the risk-benefit and alternatives of her staying in considering treatment and she understood agreed proceed as is documented in this note.? An excerpt from her last inpatient stay is included below for context. Per her 01/17/2021 [facility] inpatient psychiatric evaluation: As was stated in the consultation, Janice Nguyen is a 35 year old female with reported history of major depressive disorder, anxiety disorder, history of PTSD who presented to the ED for evaluation and treatment after a traumatic event.? The note from the ED states: HPI Narrative: Ms. Nguyen is a 35-year-old lady with significant past medical history of depressive disorder and substance abuse who presents the emergency department due to psychiatric concern. On Monday she discovered her friend who she was with and used heroin with. Since that time she has had profound grief, uncontrolled tearfulness, nausea, anxiety, passive suicidal ideation, and guilt. The intensity of symptoms is moderate to severe in the course has been worsening. She denies other medical complaints. She denies other specific changes in health, exacerbating, or alleviating factors. She reports last heroin use was on Monday. She denies current other medication use. The patient is obviously quite sad and distraught about finding her friend .? She says she is having trouble getting the image out of her mind.? As described above, the patient has felt sad, anxious, angry, and guilty.? She says she has been crying a lot.? She has some feeling that she would be better off , too, but she is having no thoughts of killing herself.? She says she has been using meth and marijuana but no more heroin.? UDS is positive for amphe tamines, marijuana, and benzodiazepines, which she has been given in the ED.? She has a previous overnight hospitalization back in July when she became suicidal while intoxicated on alcohol.? She was discharged the next day because the suicidal ideation resolved after she sobered up. Hospital Course Hospital Course She slowly acclimated to the individual, group milieu therapies provided. On a few occasions she expressed a possible plan of leaving AGAINST MEDICAL ADVICE. Medications for withdrawal were administered on a few occasions. But she was reporting significant opiate withdrawal but she denied any of the standard measures, clonidine, Vistaril, Seroquel for constitutional symptoms would be helpful. Eventually mostly secondary to frustration from her opiate withdrawal she did request to leave AGAINST MEDICAL ADVICE. She was able to contract for safety outside of the hospital prior to discharge. During the hospitalization, patient had routine laboratory studies which were within normal limits except for few outliers. Additionally there was a general medical evaluation which was also within normal limits and revealed no new acute processes. Discharge Summary: At the time of discharge, she denied psychosis or lethality. Mood and anxiety issues were reported . Patient endorsed a plan to avoid all drugs of abuse and follow-up with the aftercare recommendations of the treatment team. Patient was evaluated and deemed to be absent credible lethality, and had achieved the maximum benefit from an inpatient hospitalization, so was discharged. Involuntary Hold Information 96 Hour Hold: 96 Hour Involuntary Admission: No Mental Status Exam MSE Comments: This is a well-nourished well-developed white female in hospital scrubs with limited grooming and eye contact.? No abnormal movements except for psychomotor agitation.? Mostly uncooperative with exam in mild distress.? Speech was limited and decreased rate and volume.? Mood described as annoyed, affect irritable. Thought process organized.? Thought content: Patient did not report suicidal or homicidal ideation, there were no delusions reported or noted, she denied auditory visualizations.? Attention and concentration were limited and memory was unreliable but none were formally tested.? She is alert and oriented x3.? Insight and judgment are impaired, impulse control is impaired. Discharge Data Studies Completed and Pending: Laboratory Results WBC 8.3 10^3/uL (4.0- 10.0) 07/17/21 02:40 RBC 4.48 10^6/uL (4.1 -5.3) 07/17/21 02:40 Hgb 14.1 g/dL (11.5-1 5.3) 07/17/21 02:40 Hct 42.2 % (37.0-47.0 ) 07/17/21 02:40 MCV 94.2 fl (81-99) 07/17/21 02:40 MCH 31.5 pg (28.0-34. 0) 07/17/21 02:40 MCHC 33.4 g/dL (30.0-3 6.0) 07/17/21 02:40 RDW 14.1 % (12.1-15.1 ) 07/17/21 02:40 Plt Count 308 10^3/cmm (130 -400) 07/17/21 02:40 MPV 10.3 fL (7.4-10.4 ) 07/17/21 02:40 Neut % (Auto) 57.1 % 07/17/21 02:40 Lymph % (Auto) 33.2 % 07/17/21 02:40 [place] % (Auto) 6.7 % 07/17/21 02:40 Eos % (Auto) 1.8 % 07/17/21 02:40 Baso % (Auto) 1.0 % 07/17/21 02:40 Neut # (Auto) 4.71 10^3/uL (1.8 -7.7) 07/17/21 02:40 Lymph # (Auto) 2.7 10^3/uL (0.8- 4.8) 07/17/21 02:40 [place] # (Auto) 0.6 10^3/uL (0.2- 0.9) 07/17/21 02:40 Eos # (Auto) 0.2 10^3/uL (0.0- 0.8) 07/17/21 02:40 Baso # (Auto) 0.1 10^3/uL (0.0- 0.1) 07/17/21 02:40 Nucleated RBC % (a uto) 0 % 07/17/21 02:40 Nucleated RBCs # 0.0 /100WBC 07/17/21 02:40 Sodium 137 mmol/L (136-1 45) 07/17/21 02:40 Potassium 3.2 mmol/L (3.5-5 .1) L 07/17/21 02:40 Chloride 102 mmol/L (98-10 7) 07/17/21 02:40 Carbon Dioxide 23 mmol/L (22-29) 07/17/21 02:40 Anion Gap 15.2 (5-19) 07/17/21 02:40 BUN 10 mg/dL (6-20) 07/17/21 02:40 Creatinine 0.8 mg/dL (0.5-0. 9) 07/17/21 02:40 GFR Calculation 80.7 mL/min (90-1 30) L 07/17/21 02:40 Glucose 109 mg/dL (65-115 ) 07/17/21 02:40 Calculated Osmolal ity 284 mOsm/kg (285- 295) L 07/17/21 02:40 Calcium 10.1 mg/dL (8.5-1 0.5) 07/17/21 02:40 Total Bilirubin 0.3 mg/dL (0.15-1 .2) 07/17/21 02:40 AST 26 U/L (0-32) 07/17/21 02:40 ALT 19 U/L (0-33) 07/17/21 02:40 Alkaline Phosphata se 70 IU/L (35-105) 07/17/21 02:40 Total Protein 7.8 g/dL (6.6-8.7 ) 07/17/21 02:40 Albumin 4.4 g/dL (3.5-5.2 ) 07/17/21 02:40 Globulin 3.4 g/dL (1.3-4.6 ) 07/17/21 02:40 HCG, Qual Negative (Negati ve) 07/17/21 05:30 Urine Color Yellow (Yellow) 07/17/21 05:30 Urine Appearance Sl cloudy (CLEAR ) A 07/17/21 05:30 Urine pH 5 (5-7) 07/17/21 05:30 Ur Specific Gravit y 1.030 (1.005-1.0 30) 07/17/21 05:30 Urine Protein Trace (Negative) 07/17/21 05:30 Urine Glucose (UA) Norm (Normal) 07/17/21 05:30 Urine Ketones 1+ (Negative) H 07/17/21 05:30 Urine Blood Neg (Negative) 07/17/21 05:30 Urine Nitrate Positive (Negati ve) H 07/17/21 05:30 Urine Bilirubin Neg (Negative) 07/17/21 05:30 Urine Urobilinogen 1 mg/dL (Negative ) H 07/17/21 05:30 Ur Leukocyte Janelle ase 1+ (Negative) H 07/17/21 05:30 Urine RBC 0-4 /hpf (0-2) H 07/17/21 05:30 Urine WBC 5-10 /hpf (0-5) H 07/17/21 05:30 Ur Squamous Epith Cells 15-25 /hpf (0-5) H 07/17/21 05:30 Amorphous Sediment Not Reportable 07/17/21 05:30 Urine Bacteria 3+ /hpf (NONE) H 07/17/21 05:30 Salicylates < 0.3 mg/dL (3-10 ) L 07/17/21 02:40 Urine Opiates Scre en Negative ng/mL (N egative) 07/17/21 05:30 Acetaminophen < 5.0 ug/mL (10-3 0) L 07/17/21 02:40 Ur Barbiturates Sc reen Positive ng/mL (N egative) H 07/17/21 05:30 Ur Phencyclidine S crn Negative ng/mL (N egative) 07/17/21 05:30 Ur Amphetamines Sc reen Positive ng/mL (N egative) H 07/17/21 05:30 U Benzodiazepines Scrn Positive ng/mL (N egative) H 07/17/21 05:30 Urine Cocaine Scre en Negative ng/mL (N egative) 07/17/21 05:30 U Marijuana (THC) Screen Positive ng/mL (N egative) H 07/17/21 05:30 Ethyl Alcohol 69 mg/dL (0-10) H 07/17/21 02:40 Vitals: Last Vital Signs Temp 97.8 F 07/18/21 13:01 Pulse 58 L 07/18/21 13:01 Resp 18 07/18/21 13:01 BP 144/75 07/18/21 13:01 Pulse Ox 99 07/18/21 13:01 Discharge Plan Discharge Patient Disposition: Left Against Medical Advice Condition: Stable Prescriptions: No Action sertraline [Zoloft] 50 mg tablet 50 mg PO DAILY Qty: 30 1RF Discharge Diet: Regular Discharge Activity: Resume usual activity Patient Instructions: Stress (DC), Polysubstance Use Disorder (DC) Discharge Attestations NPU Time Spent in Discharge Care*: less than 30 min Specific Discharge Activities: Specific discharge activities: educating patient, discussing with case folder/social workers/dc planners, documenting/other paperwork and evaluating patient/reviewing data Status at Discharge: Cognitive status at discharge: cognitively intact , Behavioral status at discharge: cooperative and can be uncooperative , Coding Level of Care Code Acute Chg FW DC note Diagnoses Suicidal ideation R45.851 Amphetamine use disorder, severe F15.20 Severe benzodiazepine use disorder F13.20 Cannabis use disorder, severe, dependence F12.20 Alcohol use disorder Post-traumatic stress disorder, chronic F43.12 Depressive disorder F32.9
--- NOTE | 2021-07-19 07:32 | PC.OT ---
OT EVALUATION ORDERS RECEIVED. PATIENT DISCHARGED BEFORE EVALUATION COULD BE COMPLETED.
== END 2021-07-18 13:02 | disposition left against medical advice (07) | DRG 881 ==
LOC: ER 05:14 → NP 05:30
PROVIDERS: Admitting Provider Psychiatry & Neurology Psychiatry; Emergency Provider Emergency Medicine; Visit Provider Psychiatry & Neurology Psychiatry
DX: F32.A Depression, unspecified (principal); R45.851 Suicidal ideations; F13.239 Sedative, hypnotic or anxiolytic dependence with withdrawal, unspecified; F15.20 Other stimulant dependence, uncomplicated; F12.20 Cannabis dependence, uncomplicated; F10.10 Alcohol abuse, uncomplicated; F43.12 Post-traumatic stress disorder, chronic
CPT/HCPCS: 80053; 80306; 80307; 81001; 81025; 85025; 99285

== ENCOUNTER 2021-10-19 21:21 | Inpatient (IN) | payer BC, SELFPAY ==
[2021-10-19 21:34] VITALS: BMI 56.7
--- NOTE | 2021-10-19 21:37 | W.ED.PSYCHS ---
HPI - Psych General: Chief Complaint: Psychiatric Symptoms Stated Complaint: mental health eval Time Seen by Provider: 10/19/21 21:36 History of Present Illness: Ms. Nguyen is a 35-year-old lady with history of polysubstance abuse currently on methadone though still a daily alcohol consumer who presents to the emergency department due to mental health concerns. She reports the past few weeks have been rough regarding her mental health and she has felt generally worse. She has been following in the outpatient setting which has been somewhat helpful. She reports getting into an argument with her boyfriend last night and he killed himself by stepping in front of a train. Since that time she describes emotional turmoil. She feels that she cannot handle the current situation and fears that she will relapse regarding drugs. Overall course of symptoms has been worsening. Intensity is moderate to severe. She does endorse alcohol use today. No history of alcohol withdrawal seizures or true DTs. No other specific changes in health, exacerbating, or alleviating factors identified. Onset (ago): hour(s) History of same: Yes Context: significant life stressor Associated psychiatric symptoms: depression, racing thoughts and other Review of Systems General: Reports: 10 or more systems reviewed and unremarkable except in HPI and below PFSH ED PFSH: Medical History Alcohol dependence, uncomplicated Cannabis dependence, uncomplicated Grief Opioid dependence, in remission Other stimulant dependence, in remission Other stimulant dependence, uncomplicated Polysubstance abuse Post-traumatic stress disorder, chronic Psychiatric care Social History Smoking and tobacco status: unknown if ever smoked Current gender identity: Female Female Reproductive History: Date of last menstrual period: 01/16/21 Physical Exam Const: COMMON NORMALS: alert GENERAL APPEARANCE: cooperative and well developed HENMT: COMMON NORMALS: normocephalic and atraumatic HEAD & SCALP: normocephalic and atraumatic Eye: COMMON NORMALS: conjunctivae normal CONJUNCTIVA: Yes conjunctivae normal SCLERA: sclerae normal Neck/C-Spine: COMMON NORMALS: supple GENERAL: Yes trachea midline Resp: COMMON NORMALS: normal respiratory effort EFFORT & INSPECTION: Yes able to speak in complete sentences Cardio: COMMON NORMALS: regular rate and regular rhythm RATE: regular rate RHYTHM: regular rhythm GI: COMMON NORMALS: Soft to palpation PALPATION: Yes Soft to palpation and No Tenderness to palpation present (GI) Extremity: GENERAL: Yes normal exam except as noted and No edema Neuro: COMMON NORMALS: moves all extremities SENSORIUM/ORIENTATION: Yes alert and No Orientation impaired Psych: MOOD & AFFECT: Yes depressed mood and Yes tearful Course ED course: - Patient was seen and evaluated by me at bedside -Vital signs obtained - Initial evaluation notable for exam as above. Patient appears distraught - Labs personally interpreted by me - Labs notable for no leukocytosis, normal hemoglobin. Metabolic panel with perhaps mild evidence of dehydration, patient can adequately rehydrate. Mild transaminitis. Alcohol level elevated, toxic ingestions otherwise only positive for marijuana and benzodiazepines. - Based on ED evaluation at this point there is no obvious condition that would preclude the patient from inpatient management of psychiatric concerns. - Discussed with psychiatry service and patient to be admitted to neuropsych unit for further management. Note: Click bubbles or prepopulated arechiga in note writing are used for assistance with data collection and billing and are inherently more limited than narrative and other text portions of this note. Please use narrative for additional clinical history and defer to narrative/free test for any case of contradictory information. If information appears in only free text or click bubble it should be considered present or absent as reported. Please contact note chief underwriter for clarifications of clinical information or contradictory information. MDM is a brief summary, contradictory or erroneous seeming information should be clarified and full note should be reviewed. Vital Signs: Vital signs: Vital Signs Temperature 98 F 10/22/21 15:12 Pulse Rate 80 10/22/21 15:12 Respiratory Rate 17 10/22/21 15:12 Blood Pressure 130/79 10/22/21 15:12 Pulse Oximetry 100 10/22/21 15:12 MDM - Psych Medical Decision Making 35-year-old lady with history of psychiatric disorder and polysubstance abuse presenting with significant life stressor for psychiatric evaluation. Admitted to neuropsych unit for further management. Medical Records I reviewed the patient's medical records. Lab Data I reviewed the patient's lab results. : 10/19/21 22:00 10/19/21 22:00 Laboratory Results WBC 9.0 10^3/uL (4.0-10.0) 10/19/21 22:00 RBC 4.43 10^6/uL (4.1-5.3) 10/19/21 22:00 Hgb 14.5 g/dL (11.5-15.3) 10/19/21 22:00 Hct 42.1 % (37.0-47.0) 10/19/21 22:00 MCV 95.0 fl (81-99) 10/19/21 22:00 MCH 32.7 pg (28.0-34.0) 10/19/21 22:00 MCHC 34.4 g/dL (30.0-36.0) 10/19/21 22:00 RDW 15.6 % (12.1-15.1) H 10/19/21 22:00 Plt Count 320 10^3/cmm (130-400) 10/19/21 22:00 MPV 10.7 fL (7.4-10.4) H 10/19/21 22:00 Neut % (Auto) 46.1 % 10/19/21 22:00 Lymph % (Auto) 45.2 % 10/19/21 22:00 [place] % (Auto) 5.9 % 10/19/21 22:00 Eos % (Auto) 1.4 % 10/19/21 22:00 Baso % (Auto) 1.1 % 10/19/21 22:00 Neut # (Auto) 4.13 10^3/uL (1.8-7.7) 10/19/21 22:00 Lymph # (Auto) 4.1 10^3/uL (0.8-4.8) 10/19/21 22:00 [place] # (Auto) 0.5 10^3/uL (0.2-0.9) 10/19/21 22:00 Eos # (Auto) 0.1 10^3/uL (0.0-0.8) 10/19/21 22:00 Baso # (Auto) 0.1 10^3/uL (0.0-0.1) 10/19/21 22:00 Nucleated RBC % (auto) 0 % 10/19/21 22:00 Nucleated RBCs # 0.0 /100WBC 10/19/21 22:00 Sodium 142 mmol/L (136-145) 10/19/21 22:00 Potassium 3.6 mmol/L (3.5-5.1) 10/19/21 22:00 Chloride 105 mmol/L (98-107) 10/19/21 22:00 Carbon Dioxide 23 mmol/L (22-29) 10/19/21 22:00 Anion Gap 17.6 (5-19) 10/19/21 22:00 BUN 11 mg/dL (6-20) 10/19/21 22:00 Creatinine 1.0 mg/dL (0.5-0.9) H 10/19/21 22:00 GFR Calculation 62.4 mL/min (90-130) L 10/19/21 22:00 Glucose 92 mg/dL (65-115) 10/19/21 22:00 Calculated Osmolality 293 mOsm/kg (285-295) 10/19/21 22:00 Calcium 9.0 mg/dL (8.5-10.5) 10/19/21 22:00 Total Bilirubin 0.3 mg/dL (0.15-1.2) 10/19/21 22:00 AST 73 U/L (0-32) H 10/19/21 22:00 ALT 72 U/L (0-33) H 10/19/21 22:00 Alkaline Phosphatase 92 IU/L (35-105) 10/19/21 22:00 Total Protein 9.0 g/dL (6.6-8.7) H 10/19/21 22:00 Albumin 4.9 g/dL (3.5-5.2) 10/19/21 22:00 Globulin 4.1 g/dL (1.3-4.6) 10/19/21 22:00 HCG, Qual Negative (Negative) 10/19/21 22:00 Salicylates < 0.3 mg/dL (3-10) L 10/19/21 22:00 Urine Opiates Screen Negative ng/mL (Negative) 10/19/21 22:00 Acetaminophen < 5.0 ug/mL (10-30) L 10/19/21 22:00 Ur Barbiturates Screen Negative ng/mL (Negative) 10/19/21 22:00 Ur Phencyclidine Scrn Negative ng/mL (Negative) 10/19/21 22:00 Ur Amphetamines Screen Negative ng/mL (Negative) 10/19/21 22:00 U Benzodiazepines Scrn Positive ng/mL (Negative) H 10/19/21 22:00 Urine Cocaine Screen Negative ng/mL (Negative) 10/19/21 22:00 U Marijuana (THC) Screen Positive ng/mL (Negative) H 10/19/21 22:00 Ethyl Alcohol 116 mg/dL (0-10) H 10/19/21 22:00 Discharge Plan Discharge Patient Disposition: Admitted As Inpatient Admit Provider: Barron Atkinson Clinical Impression: Acute stress reaction, Alcohol abuse, Abnormal transaminases Condition: Stable Discharge Diet: Advance as tolerated Discharge Activity: Resume usual activity Coding Level of Care Code ED Commercial Service Technician for Jessica Fwd Exam Comprehensive
[2021-10-19 22:17] LABS: Basophils # 0.1 10^3/uL (0.0-0.1); Basophils % 1.1 %; Eosinophils # 0.1 10^3/uL (0.0-0.8); Eosinophils % 1.4 %; Hematocrit 42.1 % (37.0-47.0); Hemoglobin 14.5 g/dL (11.5-15.3); Lymphocytes # 4.1 10^3/uL (0.8-4.8); Lymphocytes % 45.2 %; Mean Corpuscular HGB Conc 34.4 g/dL (30.0-36.0); Mean Corpuscular Hemoglobin 32.7 pg (28.0-34.0); Mean Platelet Volume 10.7 fL (7.4-10.4); Monocytes # 0.5 10^3/uL (0.2-0.9); Monocytes % 5.9 %; Neutrophils # 4.13 10^3/uL (1.8-7.7); Neutrophils % 46.1 %; Nucleated Red Blood Cells % 0 %; Platelet Count 320 10^3/cmm (130-400); Red Blood Count 4.43 10^6/uL (4.1-5.3); Red Cell Distribution Width 15.6 % (12.1-15.1)
[2021-10-19 22:19] LABS: HCG Qualitative Urine. Negative (Negative)
[2021-10-19 22:26] LABS: Alanine Aminotransferase 72 U/L (0-33); Albumin Level 4.9 g/dL (3.5-5.2); Alcohol Level 116 mg/dL (0-10); Alkaline Phosphatase 92 IU/L (35-105); Anion Gap 17.6 (5-19); Aspartate Amino Transferase 73 U/L (0-32); Blood Urea Nitrogen 11 mg/dL (6-20); Carbon Dioxide 23 mmol/L (22-29); Chloride 105 mmol/L (98-107); Globulin 4.1 g/dL (1.3-4.6); Glomerular Filtration Rate 62.4 mL/min (90-130); Glucose 92 mg/dL (65-115); Osmolality Calculated 293 mOsm/kg (285-295); Potassium 3.6 mmol/L (3.5-5.1); Sodium 142 mmol/L (136-145); Total Bilirubin 0.3 mg/dL (0.15-1.2)
[2021-10-19 22:27] LABS: Acetaminophen < 5.0 ug/mL (10-30); Salicylate < 0.3 mg/dL (3-10)
[2021-10-19 22:28] LABS: Amphetamines Screen Urine Negative (Negative); Barbiturates Screen Urine Negative (Negative); Benzodiazepines Screen Urine Positive (Negative); Cocaine Screen Urine Negative (Negative); Opiate Screen Urine Negative (Negative); PCP Screen Urine Negative (Negative); THC Screen Urine Positive (Negative)
[2021-10-19 23:25] VITALS: BP 155/92; PULSE 62; RESP 18; TEMP 36.7; O2SAT 99
[2021-10-19] MEDS: acetaminophen 325 mg Tablet 650 MG PO (23:42)
[2021-10-19] MEDS: trazodone 50 mg Tablet PO (23:42)
[2021-10-19] MEDS: hyDROXYzine 25 mg Capsule 50 MG PO (23:42)
[2021-10-19 23:58] VITALS: BMI 26.9
[2021-10-20 06:00] VITALS: BP 117/67; PULSE 58; RESP 19; TEMP 36.8; O2SAT 97
[2021-10-20] MEDS: multivitamin therapeutic Tablet 1 TAB PO (08:59)
[2021-10-20] MEDS: folic acid 1 mg Tablet PO (08:59)
[2021-10-20] MEDS: hyDROXYzine 25 mg Capsule 50 MG PO (08:59)
[2021-10-20] MEDS: thiamine 100 mg Tablet PO (08:59)
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
--- NOTE | 2021-10-20 09:00 | PC.NURSE ---
PRN VISTARIL 50 MG GIVEN PO PER PT C/O STATED ANXIETY
--- NOTE | 2021-10-20 09:35 | PC.NURSE ---
SPOKE TO KEENAN RADER AT [facility]. SHE CONFIRMED THAT THIS PATIENT IS ON SCHEDULED METHADONE 70 MG DAILY, LAST DOSE WAS GIVEN 10/19/21
[2021-10-20] MEDS: nicotine 2 mg Gum BUCCAL ×4 (10:16→18:46)
[2021-10-20] MEDS: methadone 10 mg Tablet 70 MG PO (11:54)
[2021-10-20 14:00] VITALS: BP 109/72; PULSE 66; RESP 16; TEMP 36.7; O2SAT 96
[2021-10-20 19:51] VITALS: BP 110/69; PULSE 65; RESP 16; TEMP 36.8; O2SAT 98
[2021-10-20] MEDS: trazodone 50 mg Tablet PO (20:23)
[2021-10-20] MEDS: ondansetron 4 MG Tablet PO (21:24)
[2021-10-20] MEDS: LORazepam 2 mg Tablet PO (21:24)
[2021-10-21 06:00] VITALS: BP 121/76; PULSE 61; RESP 18; TEMP 36.8; O2SAT 99
[2021-10-21] MEDS: thiamine 100 mg Tablet PO (07:38)
[2021-10-21] MEDS: nicotine 2 mg Gum BUCCAL ×5 (07:38→20:32)
[2021-10-21] MEDS: folic acid 1 mg Tablet PO (07:38)
[2021-10-21] MEDS: multivitamin therapeutic Tablet 1 TAB PO (07:38)
[2021-10-21] MEDS: methadone 10 mg Tablet 70 MG PO (07:38)
[2021-10-21] MEDS: acetaminophen 325 mg Tablet 650 MG PO (11:07)
[2021-10-21] MEDS: LORazepam 2 mg Tablet PO ×2 (11:07→20:39)
--- NOTE | 2021-10-21 11:08 | PC.NURSE ---
Addendum entered by Beverley Perera LPN 10/21/21 11:58: CIWA SCORE NOW AT A 1 Original Note: CIWA SCORE 11---ATIVAN 2 MG GIVEN PO PER PT REQUEST & C/O SHAKING AND SWEATING
[2021-10-21 14:00] VITALS: BP 119/73; PULSE 54; RESP 16; TEMP 36.7; O2SAT 98
--- NOTE | 2021-10-21 16:10 | W.PM.NPUPNS ---
Subjective NPU Subjective: Patient is a 35-year-old white female with alcohol abuse and respiratory alcohol abuse anxiety depression and PTSD symptoms admitted after she had been feeling more dysphoric due to of her boyfriend. Patient had received significant medications for alcohol withdrawal including Ativan orally which helped relieve some of her withdrawal symptoms. She reports having slept better and reports that she has been feeling better. She did acknowledge considerable depression and anxiety and stated that she was willing to try medications and engage in therapy again. Mental Status Exam MSE Comments: She is a casually dressed white female who appeared somewhat older than stated age.? Her hands were shaking during the interview and she appeared to be more alert today. Her mood was described depressed. Her affect was restricted in range. Her thought process appeared linear and logical. Her thought content showed no active homicidal ideation. She had endorsed having suicidal thoughts upon arriving but not currently.? There was no clear evidence of delusional thinking.? She did appear somewhat hypervigilant during the interview. She was alert and oriented to person place time and situation Vitals/I&O/Wt Last Vital Signs Temp 98.0 F 10/21/21 14:00 Pulse 54 L 10/21/21 14:00 Resp 16 10/21/21 14:00 BP 119/73 10/21/21 14:00 Pulse Ox 98 10/21/21 14:00 Weight last 48 hrs Weight 71.305 kg Weight 150 kg Data NPU : 10/19/21 22:00 10/19/21 22:00 A&P Assessment and plan (1) Suicidal ideation: Status: Acute (2) Opioid dependence on agonist therapy: Status: Acute (3) Acute stress reaction: Status: Acute (4) Alcohol abuse: Status: Acute (5) Abnormal transaminases: Status: Acute (6) Alcohol use disorder: Status: Acute (7) Cannabis use disorder, severe, dependence: Status: Acute (8) Severe benzodiazepine use disorder: Status: Acute (9) Amphetamine use disorder, severe: Status: Acute Plan 1. Restart Methadone as prescribed 2. Start Remeron 15mg at night to target anxiety and depression. 3. Engage in milieu, individual and group therapy 4.? CIWA protocol 5? Encourage sober living treatment after discharge at the highest level of care to which she is willing to commit 6.? 15 minute checks for safety.? Involuntary Hold Information 96 Hour Hold: 96 Hour Involuntary Admission: No Attestations NPU Medical Necessity Statement*: Inpatient hospitalization is medically necessary and the clinically appropriate intervention at this time. We will monitor medication to make changes as indicated. Patient will be in the hospital for over two midnights. Likely length of stay 3 to 5 days. Coding Level of Care Code Established Pt Acute Personal Banking Officer for Jessica Villa Patient Type Established History Problem Focused Exam Problem Focused Medical Decision Making Straight Forward Diagnoses Suicidal ideation R45.851 Opioid dependence on agonist therapy F11.20 Acute stress reaction F43.0 Alcohol abuse F10.10 Abnormal transaminases R74.8 Alcohol use disorder Cannabis use disorder, severe, dependence F12.20 Severe benzodiazepine use disorder F13.20 Amphetamine use disorder, severe F15.20
[2021-10-21 20:26] VITALS: BP 131/73; PULSE 53; RESP 16; TEMP 36.6; O2SAT 94
[2021-10-21] MEDS: mirtazapine 15 mg Tablet PO (20:32)
[2021-10-21 21:37] VITALS: BP 131/73; PULSE 53; RESP 16; TEMP 36.6; O2SAT 94
[2021-10-22] MEDS: nicotine 2 mg Gum BUCCAL ×4 (00:51→13:51)
[2021-10-22 06:00] VITALS: BP 124/85; PULSE 87; RESP 17; TEMP 36.6; O2SAT 95
[2021-10-22] MEDS: multivitamin therapeutic Tablet 1 TAB PO (08:30)
[2021-10-22] MEDS: thiamine 100 mg Tablet PO (08:30)
[2021-10-22] MEDS: folic acid 1 mg Tablet PO (08:30)
[2021-10-22 08:33] VITALS: RESP 17; O2SAT 95
[2021-10-22] MEDS: methadone 10 mg Tablet 70 MG PO (08:33)
[2021-10-22] MEDS: LORazepam 2 mg Tablet PO (08:34)
[2021-10-22 13:25] VITALS: BP 130/79; PULSE 80; RESP 17; TEMP 36.6; O2SAT 100
[2021-10-22] MEDS: OLANZapine 5 mg ODT PO (13:51)
[2021-10-22 15:12] VITALS: BP 130/79; PULSE 80; RESP 17; TEMP 36.6; O2SAT 100
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
== END 2021-10-22 16:30 | disposition home or self-care (01) | DRG 881 ==
LOC: ER 23:02 → NP 10-20 01:29
PROVIDERS: Emergency Medicine; Admitting Provider Psychiatry & Neurology Psychiatry; Emergency Provider Emergency Medicine; Visit Provider Psychiatry & Neurology Psychiatry
DX: F43.21 Adjustment disorder with depressed mood (principal); R45.851 Suicidal ideations; F10.239 Alcohol dependence with withdrawal, unspecified; F15.20 Other stimulant dependence, uncomplicated; Z63.4 Disappearance and death of family member; F41.9 Anxiety disorder, unspecified; F43.12 Post-traumatic stress disorder, chronic; F10.229 Alcohol dependence with intoxication, unspecified; Y90.5 Blood alcohol level of 100-119 mg/100 ml; F11.21 Opioid dependence, in remission; F12.20 Cannabis dependence, uncomplicated
CPT/HCPCS: 80053; 80306; 80307; 81025; 85025; 97150; 97165; 99285; Q0162

== ENCOUNTER 2022-04-18 14:41 | Inpatient (IN) | payer BC, SELFPAY ==
[2022-04-18 15:32] VITALS: BP 120/75; PULSE 71; RESP 18; TEMP 36.3; O2SAT 95; BMI 33.1
[2022-04-18] MEDS: ziprasidone 20 mg/mL SDV (15:40)
[2022-04-18] MEDS: LORazepam 2 mg/mL INJ 1 mL (15:40)
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
[2022-04-18 16:40] LABS: Basophils # 0.1 10^3/uL (0.0-0.1); Basophils % 0.9 %; Eosinophils # 0.2 10^3/uL (0.0-0.8); Eosinophils % 3.7 %; Hematocrit 43.5 % (37.0-47.0); Hemoglobin 14.4 g/dL (11.5-15.3); Lymphocytes # 2.6 10^3/uL (0.8-4.8); Lymphocytes % 47.9 %; Mean Corpuscular HGB Conc 33.1 g/dL (30.0-36.0); Mean Corpuscular Hemoglobin 32.3 pg (28.0-34.0); Mean Corpuscular Volume 97.5 fl (81-99); Monocytes # 0.4 10^3/uL (0.2-0.9); Monocytes % 6.8 %; Neutrophils % 40.3 %; Nucleated Red Blood Cells % 0 %; Platelet Count 203 10^3/cmm (130-400); Red Blood Count 4.46 10^6/uL (4.1-5.3); White Blood Count 5.5 10^3/uL (4.0-10.0)
[2022-04-18 17:03] LABS: Alanine Aminotransferase 27 U/L (0-33); Albumin Level 4.2 g/dL (3.5-5.2); Alcohol Level 195 mg/dL (0-10); Alkaline Phosphatase 73 U/L (35-105); Anion Gap 14.2 (5-19); Aspartate Amino Transferase 32 U/L (0-32); Blood Urea Nitrogen 10 mg/dL (6-20); Calcium 9.5 mg/dL (8.5-10.5); Carbon Dioxide 25 mmol/L (22-29); Chloride 106 mmol/L (98-107); Glomerular Filtration Rate 80.3 mL/min (90-130); Glucose 76 mg/dL (65-115); Osmolality Calculated 292 mOsm/kg (285-295); Potassium 3.2 mmol/L (3.5-5.1); Sodium 142 mmol/L (136-145); Total Bilirubin 0.2 mg/dL (0.15-1.2); Total Protein 8.2 g/dL (6.6-8.7)
[2022-04-18 17:04] LABS: Acetaminophen < 5.0 ug/mL (10-30); Salicylate < 0.3 mg/dL (3-10)
[2022-04-18 18:17] LABS: HCG Qualitative Urine. Negative (Negative)
[2022-04-18 18:31] LABS: Amphetamines Screen Urine Negative (Negative); Barbiturates Screen Urine Negative (Negative); Benzodiazepines Screen Urine Negative (Negative); Cocaine Screen Urine Negative (Negative); Opiate Screen Urine Negative (Negative); PCP Screen Urine Negative (Negative); THC Screen Urine Positive (Negative)
[2022-04-18 18:44] LABS: Add Urine Microscopic? YES; Bilirubin Urine Neg (Negative); Blood Urine Neg (Negative); Glucose Urine UA Norm (Normal); Ketones Urine Negative (Negative); Leukocyte Esterase Urine Trace (Negative); Nitrate Urine Negative (Negative); Protein Urine Neg (Negative); Specific Gravity, Urine 1.005 (1.005-1.030); Urine Appearance Hazy (CLEAR); Urine Color Light yellow (Yellow); Urobilinogen Urine Neg (Negative); pH Urine 6 (5-7)
[2022-04-18 18:45] LABS: Bacteria Urine TRACE /hpf; Squamous Epithelial Cell Urine 0-4 /hpf (0-5); Trichomonas Urine 1+ /hpf; WBC Urine 0-4 /hpf (0-5)
[2022-04-18 18:47] VITALS: BP 112/76; PULSE 68; RESP 17; TEMP 36.7; O2SAT 100
[2022-04-18 22:00] VITALS: BP 112/76; PULSE 68; RESP 17; TEMP 36.7; O2SAT 100
[2022-04-19 06:00] VITALS: RESP 16
[2022-04-19 08:26] VITALS: RESP 16; O2SAT 98
[2022-04-19] MEDS: methadone 10 mg Tablet 70 MG PO (08:26)
[2022-04-19] MEDS: multivitamin therapeutic Tablet 1 TAB PO (08:27)
[2022-04-19] MEDS: thiamine 100 mg Tablet PO (08:27)
[2022-04-19] MEDS: folic acid 1 mg Tablet PO (08:28)
--- NOTE | 2022-04-19 08:46 | PC.NURSE ---
Patient crying upon entrance to her room. She states that what prompted her to come to the hospital was that she felt she had a mental breakdown and broke a tv. She says that her breaking point was her children (14 and 16) were refusing to go to school and that she has been having arguments with them frequently. She states she is feeling useless and that she has been without a job for a year. Patient says she has applied for several jobs, but hasn't gotten any interviews so is having financial issues. She stated she is a single mom and is afraid that if she doesn't get a job soon she'll lose her house. Another stressor seemed to be that during [place] she was unable to afford to buy her children any presents or have a Gill tree. Patient is very short with her answers and reluctant to give much information, answering I don't know to several questions.
[2022-04-19] MEDS: nicotine 2 mg Gum BUCCAL ×3 (11:21→18:11)
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
[2022-04-19] MEDS: LORazepam 2 mg Tablet PO ×2 (12:27→18:15)
--- NOTE | 2022-04-19 12:28 | PC.NURSE ---
PRN Brush Trimming Machine Setter Patient approached the counter very tearful and requested something for anxiety. Patient scored a 10 on CIWA. Lorazepam 2 mg administered
[2022-04-19] MEDS: methadone 10 mg Tablet 25 MG PO (13:36)
[2022-04-19 14:00] VITALS: BP 99/59; PULSE 73; RESP 16; TEMP 36.8; O2SAT 97
[2022-04-19] MEDS: mirtazapine 15 mg Tablet PO (19:43)
[2022-04-19 22:00] VITALS: BP 132/84; PULSE 70; RESP 16; TEMP 36.6; O2SAT 98
[2022-04-20] MEDS: nicotine 2 mg Gum BUCCAL ×2 (05:23→07:20)
[2022-04-20 06:00] VITALS: BP 119/82; PULSE 69; RESP 18; TEMP 36.8; O2SAT 98
[2022-04-20 08:41] VITALS: RESP 18; O2SAT 98
[2022-04-20] MEDS: multivitamin therapeutic Tablet 1 TAB PO (08:41)
[2022-04-20] MEDS: thiamine 100 mg Tablet PO (08:41)
[2022-04-20] MEDS: folic acid 1 mg Tablet PO (08:41)
[2022-04-20] MEDS: methadone 10 mg Tablet 95 MG PO (08:41)
[2022-04-20] MEDS: LORazepam 2 mg Tablet PO ×2 (09:53→15:34)
[2022-04-20] MEDS: nicotine 21 mg Patch 1 PATCH TRANSDERMA (10:38)
[2022-04-20 14:00] VITALS: BP 114/73; PULSE 68; RESP 18; TEMP 36.6; O2SAT 96
--- NOTE | 2022-04-20 17:11 | P.NPUPN_ITS ---
Subjective NPU Subjective: Patient presents today reporting that she still feeling quite sad. Additionally she along with other staff reported that she was having nightmares versus night terrors that have been a problem with her for some time. We discussed the risks, benefits and alternatives of initiating prazosin 1 mg p.o. nightly she understood and agrees to proceed as documented in this note. We did discuss the possibility of talking in the morning and considering initiation of Wellbutrin XL which she had had in her adolescence but does not recall how she did on it. Mental Status Exam MSE Comments: This is an overweight versus obese white female in hospital scrubs with limited grooming and eye contact.? No abnormal movements except for psychomotor retardation.? Cooperative with exam in mild to moderate distress.? Speech was decreased rate and volume.? Mood described as depressed, affect congruent. Thought process organized.? Thought content: Patient endorsed suicidal but denied homicidal ideation, there were no delusions reported or noted, she denied auditory or visual hallucinations.? Attention and c oncentration were intact and memory was reliable but none were formally tested.? She is alert and oriented x3.? Insight and judgment are impaired, impulse control is impaired. Vitals/I&O/Wt Last Vital Signs Temp 97.9 F 04/20/22 14:00 Pulse 68 04/20/22 14:00 Resp 18 04/20/22 14:00 BP 114/73 04/20/22 14:00 Pulse Ox 96 04/20/22 14:00 O2 Del Method 04/20/22 06:00 Data NPU 04/18/22 16:32 04/18/22 16:32 A&P Assessment and plan (1) Suicidal ideation: (2) Opioid dependence on agonist therapy: (3) Acute stress reaction: (4) Alcohol abuse: (5) Abnormal transaminases: (6) Alcohol use disorder: (7) Cannabis use disorder, severe, dependence: (8) Severe benzodiazepine use disorder: (9) Amphetamine use disorder, severe: (10) Post-traumatic stress disorder, chronic: (11) Depressive disorder: Plan This is a 36-year-old white female with a long history of mental health and addiction issues with alcohol, opiates, cannabis, amphetamines, and benzodiazepines who presents with active cannabis and alcohol use per UDS endorsing depression and suicidal thinking. 1. Restarted Methadone as prescribed 2. Started Remeron 15mg at night to target anxiety and depression. Start prazosin 1 mg p.o. nightly and consider Wellbutrin XL 150 mg p.o. daily in the morning. 3. Engage in milieu, individual and group therapy 4.? [facility] protocol 5? Encourage sober living treatment after discharge at the highest level of care to which she is willing to commit 6.? 15 minute checks for safety.? Involuntary Hold Information 96 Hour Hold: 96 Hour Involuntary Admission: Yes 96 Hour Hold Ending Date: 04/22/22 96 Hour Hold Ending Time: 17:15 Attestations NPU Medical Necessity Statement*: Inpatient hospitalization is medically necessary and the clinically appropriate intervention at this time. We will monitor medication to make changes as indicated. Likely length of stay 2-4 days. Coding Level of Care Code Acute Radiology Equipment Servicer for Jessica Perezd Diagnoses Suicidal ideation R45.851 Opioid dependence on agonist therapy F11.20 Acute stress reaction F43.0 Alcohol abuse F10.10 Abnormal transaminases R74.8 Alcohol use disorder F19.90 Cannabis use disorder, severe, dependence F12.20 Severe benzodiazepine use disorder F13.20 Amphetamine use disorder, severe F15.20 Post-traumatic stress disorder, chronic F43.12 Depressive disorder F32.9
[2022-04-20] MEDS: mirtazapine 15 mg Tablet PO (20:24)
[2022-04-20] MEDS: prazosin 1 mg Capsule PO (21:15)
[2022-04-20 22:00] VITALS: BP 115/75; PULSE 75; RESP 16; TEMP 36.7; O2SAT 98
[2022-04-21] MEDS: nicotine 2 mg Gum BUCCAL ×5 (06:33→20:29)
[2022-04-21] MEDS: methadone 10 mg Tablet 95 MG PO (08:12)
[2022-04-21] MEDS: folic acid 1 mg Tablet PO (08:13)
[2022-04-21] MEDS: thiamine 100 mg Tablet PO (08:13)
[2022-04-21] MEDS: multivitamin therapeutic Tablet 1 TAB PO (08:13)
[2022-04-21] MEDS: LORazepam 2 mg Tablet PO ×2 (11:04→13:21)
[2022-04-21] MEDS: buPROPion SR (12 HR) 150 mg Tablet PO (13:21)
[2022-04-21 14:00] VITALS: BP 112/77; PULSE 92; RESP 16; TEMP 36.8; O2SAT 95
--- NOTE | 2022-04-21 19:32 | W.PM.NPUPNS ---
Subjective NPU Subjective: Patient presented today reporting that she did not see much difference with the prazosin last night. We discussed the fact that it was just 1 mg and that the plan is to titrate to effect. She did not report any issues with dizziness in the morning and we discussed the risks, benefits and alternatives of increasing it to 2 mg and she understood and agreed to proceed as is documented in this note. No issues with the Wellbutrin SR daily and the plan for Wellbutrin XL 150 mg in the morning. She is having some concerns about discharge and whether she will have to be here the whole weekend. We agreed we would continue that discussion tomorrow. Mental Status Exam MSE Comments: This is an overweight versus obese white female in hospital scrubs with some improving grooming and eye contact.? No abnormal movements except for psychomotor retardation.? Cooperative with exam in mild distress.? Speech was decreased rate and volume.? Mood described as depressed, affect congruent. Thought process organized.? Thought content: Patient denied current suicidal or homicidal ideation, there were no delusions reported or noted, she denied auditory or visual hallucinations.? Attention and concentration were intact and memory was reliable but none were formally tested.? She is alert and oriented x3.? Insight and judgment are improving, impulse control is impaired. Vitals/I&O/Wt Last Vital Signs Temp 98.3 F 04/21/22 14:00 Pulse 92 04/21/22 14:00 Resp 16 04/21/22 14:00 BP 112/77 04/21/22 14:00 Pulse Ox 95 04/21/22 14:00 O2 Del Method 04/21/22 14:00 Data NPU 04/18/22 16:32 04/18/22 16:32 A&P Assessment and plan (1) Suicidal ideation: (2) Opioid dependence on agonist therapy: (3) Acute stress reaction: (4) Alcohol abuse: (5) Abnormal transaminases: (6) Alcohol use disorder: (7) Cannabis use disorder, severe, dependence: (8) Severe benzodiazepine use disorder: (9) Amphetamine use disorder, severe: (10) Post-traumatic stress disorder, chronic: (11) Depressive disorder: Plan This is a 36-year-old white female with a long history of mental health and addiction issues with alcohol, opiates, cannabis, amphetamines, and benzodiazepines who presents with active cannabis and alcohol use per UDS endorsing depression and suicidal thinking. 1. Restarted Methadone as prescribed 2. Started Remeron 15mg at night to target anxiety and depression. Started prazosin 1 mg p.o. nightly, increased to 2 mg. Start Wellbutrin XL 150 mg p.o. daily in the morning. 3. Engage in milieu, individual and group therapy 4.? [facility] protocol 5? Encourage sober living treatment after discharge at the highest level of care to which she is willing to commit 6.? 15 minute checks for safety.? Involuntary Hold Information 96 Hour Hold: 96 Hour Involuntary Admission: Yes 96 Hour Hold Ending Date: 04/22/22 96 Hour Hold Ending Time: 17:15 Attestations NPU Medical Necessity Statement*: Inpatient hospitalization is medically necessary and the clinically appropriate intervention at this time. We will monitor medication to make changes as indicated. Likely length of stay 1-3 days. Coding Level of Care Code Acute Opthalmic Tech for Jessica Fwd Diagnoses Suicidal ideation R45.851 Opioid dependence on agonist therapy F11.20 Acute stress reaction F43.0 Alcohol abuse F10.10 Abnormal transaminases R74.8 Alcohol use disorder F19.90 Cannabis use disorder, severe, dependence F12.20 Severe benzodiazepine use disorder F13.20 Amphetamine use disorder, severe F15.20 Post-traumatic stress disorder, chronic F43.12 Depressive disorder F32.9
[2022-04-21] MEDS: mirtazapine 15 mg Tablet PO (20:29)
[2022-04-21] MEDS: prazosin 1 mg Capsule PO (20:29)
[2022-04-21 20:43] VITALS: BP 123/84; PULSE 77; RESP 16; TEMP 36.9; O2SAT 96
[2022-04-22] MEDS: nicotine 2 mg Gum BUCCAL ×4 (02:12→18:22)
[2022-04-22] MEDS: hyDROXYzine 25 mg Capsule 50 MG PO ×2 (07:33→16:42)
[2022-04-22] MEDS: multivitamin therapeutic Tablet 1 TAB PO (09:12)
[2022-04-22] MEDS: folic acid 1 mg Tablet PO (09:12)
[2022-04-22] MEDS: buPROPion XL (24 HR) 150 mg Tablet PO (09:12)
[2022-04-22] MEDS: thiamine 100 mg Tablet PO (09:12)
[2022-04-22] MEDS: methadone 10 mg Tablet 95 MG PO (09:12)
[2022-04-22 14:00] VITALS: BP 109/60; PULSE 86; RESP 16; TEMP 36.6; O2SAT 99
[2022-04-22] MEDS: nicotine 4 mg lozenge MUCOUS MEM (15:15)
[2022-04-22] MEDS: OLANZapine 5 mg ODT PO (18:07)
--- NOTE | 2022-04-22 19:36 | W.PM.NPUPNS ---
Subjective NPU Subjective: Present today reporting that no matter and that she is anxious about leaving but also knows there is a lot of things have to be done to move forward. We discussed the plan of discharge in the morning so she can go to her appointment at [facility] she reports there are some family members that have been together to assist in picking some things up at home to assist her to start getting back on track at home. Mental Status Exam MSE Comments: This is an overweight versus obese white female in hospital scrubs with some improving grooming and eye contact.? No abnormal movements except for psychomotor retardation.? Cooperative with exam in mild distress.? Speech was decreased rate and volume.? Mood described as better but anxious, affect congruent. Thought process organized.? Thought content: Patient denied current suicidal or homicidal ideation, there were no delusions reported or noted, she denied auditory or visual hallucinations.? Attention and concentration were intact and memory was reliable but none were formally tested.? She is alert and oriented x3.? Insight and judgment are improving, impulse control is improving. Vitals/I&O/Wt Last Vital Signs Temp 98.5 F 04/22/22 20:09 Pulse 82 04/22/22 20:09 Resp 16 04/22/22 20:09 BP 126/80 04/22/22 20:09 Pulse Ox 97 04/22/22 20:09 O2 Del Method 04/22/22 14:00 Data NPU 04/18/22 16:32 04/18/22 16:32 A&P Assessment and plan (1) Suicidal ideation: (2) Opioid dependence on agonist therapy: (3) Acute stress reaction: (4) Alcohol abuse: (5) Abnormal transaminases: (6) Alcohol use disorder: (7) Cannabis use disorder, severe, dependence: (8) Severe benzodiazepine use disorder: (9) Amphetamine use disorder, severe: (10) Post-traumatic stress disorder, chronic: (11) Depressive disorder: Plan This is a 36-year-old white female with a long history of mental health and addiction issues with alcohol, opiates, cannabis, amphetamines, and benzodiazepines who presents with active cannabis and alcohol use per UDS endorsing depression and suicidal thinking. 1. Restarted Methadone as prescribed 2. Started Remeron 15mg at night to target anxiety and depression. Increased prazosin to 2 mg p.o. nightly. Started Wellbutrin XL 150 mg p.o. daily in the morning. 3. Engage in milieu, individual and group therapy 4.? Consider discharge in the morning. 5? Encourage sober living treatment after discharge at the highest level of care to which she is willing to commit 6.? 15 minute checks for safety.? Involuntary Hold Information 96 Hour Hold: 96 Hour Involuntary Admission: Yes 96 Hour Hold Ending Date: 04/22/22 96 Hour Hold Ending Time: 17:15 Attestations NPU Medical Necessity Statement*: Inpatient hospitalization is medically necessary and the clinically appropriate intervention at this time. We will monitor medication to make changes as indicated. Likely length of stay 1-2 days. Coding Level of Care Code Acute Legal Service Specialist for Eduarg Fwd Diagnoses Suicidal ideation R45.851 Opioid dependence on agonist therapy F11.20 Acute stress reaction F43.0 Alcohol abuse F10.10 Abnormal transaminases R74.8 Alcohol use disorder F19.90 Cannabis use disorder, severe, dependence F12.20 Severe benzodiazepine use disorder F13.20 Amphetamine use disorder, severe F15.20 Post-traumatic stress disorder, chronic F43.12 Depressive disorder F32.9
[2022-04-22 20:09] VITALS: BP 126/80; PULSE 82; RESP 16; TEMP 36.9; O2SAT 97
[2022-04-22] MEDS: prazosin 1 mg Capsule 2 MG PO (20:57)
[2022-04-22] MEDS: mirtazapine 15 mg Tablet PO (20:57)
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
[2022-04-23] MEDS: thiamine 100 mg Tablet PO (07:57)
[2022-04-23] MEDS: multivitamin therapeutic Tablet 1 TAB PO (07:57)
[2022-04-23] MEDS: folic acid 1 mg Tablet PO (07:57)
[2022-04-23] MEDS: buPROPion XL (24 HR) 150 mg Tablet PO (07:57)
[2022-04-23] MEDS: methadone 10 mg Tablet 95 MG PO (07:58)
[2022-04-23 08:01] VITALS: BP 120/78; PULSE 84; RESP 18; TEMP 37
--- NOTE | 2022-04-23 09:26 | PC.NURSE ---
[facility] per patient and physician request.
== END 2022-04-23 08:27 | disposition home or self-care (01) | DRG 881 ==
LOC: ER 16:09 → NP 04-19 05:47
PROVIDERS: Admitting Provider Psychiatry & Neurology Psychiatry; Emergency Provider Family Medicine; Visit Provider Psychiatry & Neurology Psychiatry
DX: F32.A Depression, unspecified (principal); R45.851 Suicidal ideations; F15.20 Other stimulant dependence, uncomplicated; F10.10 Alcohol abuse, uncomplicated; F12.20 Cannabis dependence, uncomplicated; F11.21 Opioid dependence, in remission; F43.12 Post-traumatic stress disorder, chronic; F17.200 Nicotine dependence, unspecified, uncomplicated; F43.9 Reaction to severe stress, unspecified
CPT/HCPCS: 36415; 80053; 80306; 80307; 81001; 81025; 85025; 97150; 97165; 99285; J2060; J3486

== ENCOUNTER 2023-09-13 20:22 | Emergency (ER) | payer BC, MEDICAID, SELFPAY ==
[2023-09-13 20:30] VITALS: BP 136/90; PULSE 98; RESP 15; O2SAT 94
--- NOTE | 2023-09-13 20:31 | XRR_ITS ---
PROCEDURE INFORMATION: Exam: XR Right Forearm Exam date and time: 09/13/2023 8:32 PM Age: 37 years old Clinical indication: Injury or trauma; Other: Tree fell on her; Laceration; Arm, lower; Prior surgery; Surgery date: 6+ months; Surgery type: Cyst removal in the right wrist; Additional info: Reese TECHNIQUE: Imaging protocol: Radiologic exam of the right forearm. Views: 2 views. COMPARISON: No relevant prior studies available. FINDINGS: Bones/joints: Normal. Soft tissues: Normal. XR/XR forearm RT 2V [id number] IMPRESSION: No acute findings.
[2023-09-13 20:32] VITALS: BP 135/90; RESP 19
--- NOTE | 2023-09-13 20:32 | W.ED.WOUNDLC ---
HPI - Wound/Laceration General: Chief Complaint: Wound/Laceration Stated Complaint: Rt Arm Injury Time Seen by Provider: 09/13/23 20:24 Source: patient Mode of arrival: ambulatory Limitations: no limitations History of Present Illness: 37-year-old female states she is cotton firewood prior to arrival and had a branch fall onto her right forearm she does have a 2 cm laceration to her right forearm she states she has pain she rates a 3 out of 10 states her last tetanus was probably over 5 years ago bleeding is controlled denies any other injuries. Associated symptoms: Denies chills, fever(s), nausea or vomiting Review of Systems Const: Denies: fever(s), chills, body aches or change in appetite ENMT: Denies: throat pain or dental pain Card: Denies: chest pain Resp: Denies: dyspnea GI: Denies: abdominal pain, nausea, vomiting or diarrhea Musc: Reports: extremity pain; Denies: neck pain or back pain Skin/Breast: Denies: rash Neuro: Denies: headache(s) PFSH ED PFSH: Medical History Severe anxiety with panic Opioid use disorder, severe, on maintenance therapy Cannabis use disorder, severe, dependence Amphetamine substance use disorder, severe, in early remission Alcohol use disorder, severe, dependence Other stimulant dependence, in remission Post-traumatic stress disorder, chronic Other stimulant dependence, uncomplicated Cannabis dependence, uncomplicated Opioid dependence, in remission Alcohol dependence, uncomplicated Polysubstance abuse Social History Smoking and tobacco/nicotine status: current every day tobacco/nicotine user Substance/Drug Use: former Current gender identity: Female Physical Exam Const: COMMON NORMALS: no acute distress, patient oriented x3 and healthy appearing HENMT: COMMON NORMALS: normocephalic and atraumatic HEAD & SCALP: normocephalic and atraumatic Eye: COMMON NORMALS: conjunctivae normal CONJUNCTIVA: Yes conjunctivae normal Neck/C-Spine: COMMON NORMALS: full ROM and supple Chest: COMMONS NORMALS: normal inspection of the chest Resp: COMMON NORMALS: normal respiratory effort Extremity: COMMON NORMALS: full ROM NARRATIVE EXTREMITY EXAM: 2 cm laceration noted to left forearm with a thorn embedded in the skin noted bleeding controlled Neuro: COMMON NORMALS: patient oriented x3, moves all extremities and no focal motor deficits Psych: COMMON NORMALS: mental status grossly normal, Normal thought process present and cooperative THOUGHT PROCESS: Normal thought process present Skin: COMMON NORMALS: no rashes or lesions noted and no wounds GENERAL SKIN EXAM: no rashes or lesions noted Procedures Foreign Body Removal Time Out Performed: yes Site: right and upper extremity Description of foreign body: other (thorn) Technique: manual removal Confirmed by:: direct visualization Complications: none Laceration Laceration 1: Site: upper extremity Side (If applicable): right Size (cm): 3 Description: linear Depth: simple, single layer Local Anesthetic: lidocaine 1% Amount of anesthesia used (mL): 9 Pre-repair: wound explored, irrigated extensively and deep structures intact Skin layer closed with: nylon Size (cm): 4-0 Number of sutures: 4 Technique: simple, interrupted Course Vital Signs: Vital signs: Vital Signs Pulse Rate 98 09/13/23 20:30 Respiratory Rate 19 H 09/13/23 20:32 Blood Pressure 135/90 09/13/23 20:32 Pulse Oximetry 94 09/13/23 20:30 Oxygen Delivery Me thod Room Air 09/13/23 20:30 MDM - Wound/Laceration Medical Decision Making Patient presents here with a laceration right forearm she also had a thorn in her forearm as well was able to remove the foreign body we will place her on Augmentin prophylactically did repair laceration with sutures she is to return in 10 days for suture removal she understands agrees to plan. Medical Records I reviewed the patient's medical records. XR interpretation done by ED provider, pending radiology final review ED provider radiology interpretation(s): No acute abnormalities noted Discharge Plan Discharge Patient Disposition: Home Clinical Impression: Laceration, Foreign body in right forearm Condition: Stable Prescriptions: New Augmentin 500-125 mg tablet 1 tab PO BID Qty: 14 0RF No Action mirtazapine 15 mg tablet See Rx Instructions .ROUTE .COMPLEX Qty: 30 0RF Dose Instruction: TAKE 1 TABLET BY MOUTH AT BEDTIME Rx Instructions: TAKE 1 TABLET BY MOUTH AT BEDTIME bupropion HCl 150 mg tablet extended release 24 hr 150 mg PO DAILY 30 Days Qty: 30 5RF escitalopram oxalate [Lexapro] 10 mg tablet 10 mg PO DAILY Qty: 30 2RF prazosin 2 mg capsule 2 mg PO BEDTIME 30 Days Qty: 30 1RF Vitamin B-1 (mononitrate) 100 mg Tablet 100 mg PO DAILY 30 Days Qty: 30 1RF Discharge Orders: Discharge ED (Routine); Ordered 09/13/23 Ordered By: Skyla Sullivan Discharge Diet: Advance as tolerated Discharge Activity: Resume usual activity Patient Instructions: Care For Your Stitches (ED), Laceration (ED) Activity Restrictions/Additional Instructions: suture removal in 10 days Coding Level of Care Code ED Civil Design Specialist for Jessica Villa
[2023-09-13] MEDS: tetanus-dipt-pertussis 0.5 mL SDV IM (20:39)
== END 2023-09-13 21:06 | disposition home or self-care (01) ==
PROVIDERS: Emergency Provider Emergency Medicine
DX: S51.811A Laceration without foreign body of right forearm, initial encounter (principal); S51.842A Puncture wound with foreign body of left forearm, initial encounter; Z72.0 Tobacco use; W20.8XXA Other cause of strike by thrown, projected or falling object, initial encounter; W60.XXXA Contact with nonvenomous plant thorns and spines and sharp leaves, initial encounter; Z23 Encounter for immunization
CPT/HCPCS: 12002; 73090; 90471; 90715; 99283

== ENCOUNTER 2023-10-31 14:26 | Emergency (ER) | payer BC, MEDICAID, SELFPAY ==
[2023-10-31 14:37] VITALS: BP 132/82; PULSE 95; RESP 16; TEMP 36.9; O2SAT 94
--- NOTE | 2023-10-31 14:47 | W.ED.SKABFB ---
HPI - Skin/Abscess/Foreign Bdy General: Chief complaint: Skin/Abscess/Foreign Body Stated complaint: Stung by bee x3 Time Seen by Provider: 10/31/23 14:43 Source: patient Mode of arrival: ambulatory Limitations: no limitations History of Present Illness: 37-year-old female who states she was stung by a bee on her left arm and her chest roughly 1030 today she had some slight swelling and pruritus at the sting sites she denies any shortness of breath denies any throat swelling she denies any worsening improving factors. Associated symptoms: Deny chills, fever(s), nausea or vomiting Review of Systems Const: Denies: fever(s), chills, body aches or change in appetite ENMT: Denies: throat pain or dental pain Card: Denies: chest pain Resp: Denies: dyspnea GI: Denies: abdominal pain, nausea, vomiting or diarrhea Musc: Denies: neck pain or back pain Skin/Breast: Reports: rash and pruritus Neuro: Denies: headache(s) PFSH ED PFSH: Medical History Severe anxiety with panic Opioid use disorder, severe, on maintenance therapy Cannabis use disorder, severe, dependence Amphetamine substance use disorder, severe, in early remission Alcohol use disorder, severe, dependence Other stimulant dependence, in remission Post-traumatic stress disorder, chronic Other stimulant dependence, uncomplicated Cannabis dependence, uncomplicated Opioid dependence, in remission Alcohol dependence, uncomplicated Polysubstance abuse Social History Smoking and tobacco/nicotine status: current every day tobacco/nicotine user Substance/Drug Use: former Current gender identity: Female Physical Exam Const: COMMON NORMALS: no acute distress, patient oriented x3 and healthy appearing HENMT: COMMON NORMALS: normocephalic and atraumatic HEAD & SCALP: normocephalic and atraumatic THROAT: posterior oropharynx normal OTHER: No swelling of the throat Neck/C-Spine: COMMON NORMALS: full ROM and supple Chest: COMMONS NORMALS: normal inspection of the chest Resp: COMMON NORMALS: normal respiratory effort, No retractions, No use of accessory muscles and clear to auscultation bilaterally AUSCULTATION: clear to auscultation bilaterally Cardio: COMMON NORMALS: regular rate, regular rhythm and No murmurs present (Cardio) RATE: regular rate RHYTHM: regular rhythm Extremity: COMMON NORMALS: full ROM Neuro: COMMON NORMALS: patient oriented x3, moves all extremities and no focal motor deficits Psych: COMMON NORMALS: mental status grossly normal, Normal thought process present and cooperative THOUGHT PROCESS: Normal thought process present Skin: COMMON NORMALS: no wounds NARRATIVE SKIN EXAM: Insect sting noted to left arm and chest with slight erythema at the site Course Vital Signs: Vital signs: Vital Signs Temperature 98.4 F 10/31/23 14:37 Pulse Rate 95 10/31/23 14:37 Respiratory Rate 16 10/31/23 14:37 Blood Pressure 132/82 10/31/23 14:37 Pulse Oximetry 94 10/31/23 14:37 Oxygen Delivery Me thod Room Air 10/31/23 14:37 MDM - Skin/Abscess/Foreign Bdy Medicial Decision Making Patient presents with localized reaction to an insect sting she has no signs of anaphylaxis or airway involvement she is to take Benadryl at home did give her Decadron Benadryl here she is stable for discharge follow-up PCP return if worsening. No radiology studies performed this visit Discharge Plan Discharge Patient Disposition: Home Clinical Impression: Bee sting Qualifiers: Encounter type: initial encounter Condition: Stable Prescriptions: No Action mirtazapine 15 mg tablet See Rx Instructions .ROUTE .COMPLEX Qty: 30 0RF Dose Instruction: TAKE 1 TABLET BY MOUTH AT BEDTIME Rx Instructions: TAKE 1 TABLET BY MOUTH AT BEDTIME bupropion HCl 150 mg tablet extended release 24 hr 150 mg PO DAILY 30 Days Qty: 30 5RF escitalopram oxalate [Lexapro] 10 mg tablet 10 mg PO DAILY Qty: 30 2RF prazosin 2 mg capsule 2 mg PO BEDTIME 30 Days Qty: 30 1RF Vitamin B-1 (mononitrate) 100 mg Tablet 100 mg PO DAILY 30 Days Qty: 30 1RF Augmentin 500-125 mg tablet 1 tab PO BID Qty: 14 0RF Discharge Orders: Discharge ED (Routine); Ordered 10/31/23 Ordered By: Skyla Sullivan Discharge Diet: Advance as tolerated Discharge Activity: Resume usual activity Patient Instructions: Insect Bite or Sting (ED) Coding Level of Care Code ED Laminated Plastics Assembler And Gluer for Jessica Villa
[2023-10-31] MEDS: diphenhydrAMINE 50 mg Capsule PO (14:55)
[2023-10-31] MEDS: dexamethasone 10 mg/mL INJ IM (14:56)
== END 2023-10-31 15:15 | disposition home or self-care (01) ==
PROVIDERS: Emergency Provider Emergency Medicine
DX: T63.441A Toxic effect of venom of bees, accidental (unintentional), initial encounter (principal); Z72.0 Tobacco use
CPT/HCPCS: 96372; 99284; J1100; Q0163

== ENCOUNTER 2024-05-16 17:11 | Emergency (ER) | payer BC, MEDICAID, SELFPAY ==
[2024-05-16] VITALS (7 sets, daily range): BP systolic 121–147; BP diastolic 74–109; PULSE 77–116; RESP 17–22; TEMP 36.5; O2SAT 97–100; BMI 30.4
--- NOTE | 2024-05-16 19:03 | ED_ITS ---
HPI - Headache 2 General: Chief Complaint: Headache Stated Complaint: migraine Time Seen by Provider: 05/16/24 18:25 Source: patient Mode of arrival: ambulatory Limitations: no limitations History of Present Illness: Patient is a 38-year-old female presents to ED today with a complaint of a migraine headache. Patient states headache began earlier this morning after she awoke. She states normally with her migraines she can take OTC analgesics and they will go away however this one was refractory. She states her headache is located to her frontal and temporal and periorbital regions which are typical places for her migraines. She states it does feel like a typical migraine headache and only different and that medications are not helping. She states she does not have any prescription abortive or prophylactic medications that she uses. She does not have a neurologist. Patient states she has never had to come to the emergency department for a migraine headache previously. She is not having any fevers. Denies neck pain or stiffness. No recent illness or surgeries. While out in waiting room patient was noted to be hyperventilating and screaming that she cannot feel her hands or face. MD elicited complaint: migraine Pertinent past history: migraines Onset (ago): hour(s) Onset description: gradually Location: frontal and temporal Severity: severe Pain scale (0-10): 10 Quality & Timing: pressure Exacerbating factors: light Relieving factors: nothing Associated symptoms: Reports nausea and vomiting; Deny confusion, fever(s) or malaise Related Data Previous Rx's Medication Instructions Recorded prazosin 2 mg capsule 2 mg PO BEDTIME 30 days #30 caps 04/23/22 thiamine mononitrate (vit B1) 100 100 mg PO DAILY 30 days #30 tabs 04/23/22 mg tablet (Vitamin B-1 (mononitrate)) bupropion HCl 150 mg 24 hr tablet, 150 mg PO DAILY 30 days #30 tabs 07/20/22 extended release escitalopram oxalate 10 mg tablet 10 mg PO DAILY #30 tabs 08/24/22 (Lexapro) mirtazapine 15 mg tablet See Rx Instructions .Route 09/01/23 .COMPLEX #30 tabs amoxicillin 500 mg-potassium 1 tab PO BID #14 tabs 09/13/23 clavulanate 125 mg tablet (Augmentin) cephalexin 500 mg capsule 500 mg PO Q6H 7 days #28 caps 05/16/24 Allergies Allergy/AdvReac Type Severity Reaction Status Date / Time haloperidol [From Haldol] Allergy Intermediate tongue Verified 09/13/23 20:32 swells aripiprazole [From Abilify] Allergy ADR-Muscle Verified 09/13/23 20:32 Pain risperidone [From Risperdal] Allergy ADR-Muscle Verified 09/13/23 20:32 Pain Review of Systems 2 Const: Denies: fever(s), chills, body aches, fatigue or malaise Eyes: Reports: photophobia; Denies: change in vision, blurry vision, floaters or seeing flashes GI: Reports: nausea and vomiting; Denies: abdominal pain Musc: Denies: neck pain Neuro: Reports: headache(s); Denies: numbness in extremities, weakness in extremities, sensory changes, lack of coordination, difficulty walking, dizziness, confusion, difficulty communicating thoughts or seizure-like activity PFSH ED 2 PFSH: Medical History Severe anxiety with panic Opioid use disorder, severe, on maintenance therapy Cannabis use disorder, severe, dependence Amphetamine substance use disorder, severe, in early remission Alcohol use disorder, severe, dependence Other stimulant dependence, in remission Post-traumatic stress disorder, chronic Other stimulant dependence, uncomplicated Cannabis dependence, uncomplicated Opioid dependence, in remission Alcohol dependence, uncomplicated Polysubstance abuse Social History Smoking and tobacco/nicotine status: current every day tobacco/nicotine user Substance/Drug Use: former Current gender identity: Female Physical Exam 2 Const: COMMON NORMALS: no acute distress, average body habitus, patient oriented x3, no limitations, healthy appearing, alert and well nourished G ENERAL APPEARANCE: cooperative and anxious ORIENTATION/CONSCIOUSNESS: Yes awake, Yes oriented to person, Yes oriented to place and Yes oriented to time OTHER: at one point during visit began hyperventilating again complaining of hand numbness and carpal spasms HENMT: COMMON NORMALS: normocephalic and atraumatic HEAD & SCALP: normal to inspection, normocephalic and atraumatic FACE & SINUS: normal facial exam and face symmetric Eye: COMMON NORMALS: Equal, round and reactive pupils present and EOMs intact bilaterally GENERAL EYE: appearance normal, both eyes and all related structures and normal light reflex PUPIL: Yes Equal, round and reactive pupils present DIRECT OPHTHALMOSCOPY: Yes normal light reflex Neck/C-Spine: COMMON NORMALS: no lymphadenopathy and no meningeal signs G ENERAL: Yes normal visual inspection GI: COMMON NORMALS: Normal to inspection, nondistended, normoactive bowel sounds present, Soft to palpation and non-tender PALPATION: Yes Soft to palpation Neuro: RAVINDER COMA SCALE: document GCS findings Ravinder coma scale eye opening: Spontaneous [place] coma scale verbal response: Orientated Ravinder coma scale motor response: Obey commands Ravinder coma scale total score: 15 COMMON NORMALS: patient oriented x3, CN's II-XII intact bilaterally, moves all extremities, no focal motor deficits, no sensory deficits noted and gait normal SENSORIUM/ORIENTATION: Yes alert, Yes oriented to person, Yes oriented to place and Yes oriented to time MENINGEAL SIGNS: Yes no meningeal signs Skin: COMMON NORMALS: no rashes or lesions noted GENERAL SKIN EXAM: no rashes or lesions noted Course 2 Vital Signs: Vital signs: Vital Signs Temperature 97.7 F 05/16/24 17:15 Pulse Rate 116 H 05/16/24 22:00 Respiratory Rate 18 05/16/24 19:26 Blood Pressure 121/79 05/16/24 21:41 Pulse Oximetry 100 05/16/24 22:00 Oxygen Delivery Me thod Room Air 05/16/24 22:00 MDM - Headache Medical Decision Making Patient here with complaints of migraine headache. She has intermittently been very anxious and hyperventilating. Patient CT head is unremarkable. Blood work is benign. UA suspicious for UTI with 1+ leukocyte esterase, 21-50 WBCs in urine bacteria that exceeds hpf. She has no flank pain. White count is normal. She has no vomiting. She can be treated with oral antibiotics for this. Tox screen positive for amphetamines and marijuana. Headache improved after IV medications. Return to ED precautions discussed. Medical Records I reviewed the patient's medical records. Lab Data I reviewed the patient's lab results. 05/16/24 19:00 05/16/24 19:[address] 05/16/24 20:49 IMPRESSION: No acute intracranial or calvarial abnormality. Mild maxillary mucosal sinus disease. Laboratory Results WBC 6.62 10^3/uL (3.29-11.43) 05/16/24 19:00 RBC 4.72 10^6/uL (3.85-5.65) 05/16/24 19:00 Hgb 15.50 g/dL (11.27-16.99) 05/16/24 19:00 Hct 45.3 % (36-47) 05/16/24 19:00 MCV 96.0 fl (85-98) 05/16/24 19:00 MCH 32.8 pg (27-33) 05/16/24 19:00 MCHC 34.2 g/dL (30-55) 05/16/24 19:00 RDW 12.1 % (12.1-15.1) 05/16/24 19:00 Plt Count 258 10^3/cmm (157-399) 05/16/24 19: MPV 11.4 fL (7.4-10.4) H 05/16/24 19:00 Neut % (Auto) 60.6 % 05/16/24 19:00 Lymph % (Auto) 33.7 % 05/16/24 19:00 [place] % (Auto) 3.9 % 05/16/24 19:00 Eos % (Auto) 0.6 % 05/16/24 19:00 Baso % (Auto) 0.9 % 05/16/24 19:00 Neut # (Auto) 4.01 10^3/uL (1.8-7.7) 05/16/24 19:00 Lymph # (Auto) 2.2 10^3/uL (0.8-4.8) 05/16/24 19:00 [place] # (Auto) 0.3 10^3/uL (0.2-0.9) 05/16/24 19:00 Eos # (Auto) 0.0 10^3/uL (0.0-0.8) 05/16/24 19:00 Baso # (Auto) 0.1 10^3/uL (0.0-0.1) 05/16/24 19:00 Nucleated RBC % (auto) 0 % 05/16/24 19:00 Nucleated RBCs # 0.0 /100WBC 05/16/24 19:00 Sodium 139 mmol/L (136-145) 05/16/24 19:00 Potassium 3.5 mmol/L (3.5-5.1) 01/30/25 19:00 Chloride 98 mmol/L (98-107) 05/16/24 19:00 Carbon Dioxide 21 mmol/L (22-29) L 05/16/24 19:00 Anion Gap 23.5 (5-19) H 05/16/24 19:00 BUN 11 mg/dL (6-20) 05/16/24 19:00 Creatinine 0.8 mg/dL (0.5-0.9) 05/16/24 19:00 GFR Calculation 79.4 mL/min (90-130) L 05/16/24 19:00 Glucose 95 mg/dL (65-115) 05/16/24 19: Calculated Osmolality 287 mOsm/kg (285-295) 05/16/24 19:00 Calcium 9.8 mg/dL (8.5-10.5) 05/16/24 19:00 Total Bilirubin 0.4 mg/dL (0.15-1.2) 05/16/24 19:00 AST 29 U/L (0-32) 05/16/24 19:00 ALT 29 U/L (0-33) 05/16/24 19:00 Alkaline Phosphatase 99 U/L (35-105) 05/16/24 19:00 Total Protein 8.6 g/dL (6.6-8.7) 05/16/24 19: Albumin 4.8 g/dL (3.5-5.2) 05/16/24 19:00 Globulin 3.8 g/dL (1.3-4.6) 05/16/24 19:00 Urine Color Yellow (Yellow) 05/16/24: Urine Appearance Cloudy (CLEAR) A 05/16/24: Urine pH 7.5 (5-7) 05/16/24: Ur Specific [place] 1.019 (1.005-1.030) 05/16/24: Urine Protein Trace (Negative) A 05/16/24: Urine Glucose (UA) Negative (Normal) 05/16/24: Urine Ketones Trace (Negative) 05/16/24: Urine Blood Negative (Negative) 05/16/24: Urine Nitrate Negative (Negative) 05/16/24: Urine Bilirubin Negative (Negative) 01/30/25 21:34 Urine Urobilinogen 1.0 mg/dL (Negative) 05/16/24 21:34 Ur Leukocyte Esterase 1+ (Negative) A 05/16/24 21:34 Urine RBC 0-2 /hpf (0-2) 05/16/24 21:34 Urine WBC 21-50 /hpf (0-5) H 05/16/24 21:34 Ur Squamous Epith Cells 0-5 /hpf (0-5) 05/16/24 21:34 Amorphous Sediment Not Reportable 05/16/24 21:34 Urine Bacteria Exceeds /hpf (NONE) 05/16/24 21:34 Hyaline Casts 5.36 /lpf 05/16/24 21:34 Urine Opiates Screen Negative ng/mL (Negative) 05/16/24 21:34 Ur Barbiturates Screen Negative ng/mL (Negative) 05/16/24 21:34 Ur Phencyclidine Scrn Negative ng/mL (Negative) 05/16/24 21:34 Ur Amphetamines Screen Positive ng/mL (Negative) H 05/16/24 21:34 U Benzodiazepines Scrn Negative ng/mL (Negative) 05/16/24 21:34 Urine Cocaine Screen Negative ng/mL (Negative) 05/16/24 21:34 U Marijuana (THC) Screen Positive ng/mL (Negative) H 05/16/24 21:34 All radiology interpretation(s) finalized by discharge Discharge Plan Discharge Patient Disposition: Home Clinical Impression: Severe anxiety with panic Migraine Qualifiers: Migraine type: unspecified Status migrainosus presence: without status migrainosus Intractability: not intractable Qualified Code(s): G43.909 - Migraine, unspecified, not intractable, without status migrainosus UTI (urinary tract infection) Qualifiers: Urinary tract infection type: acute cystitis Hematuria presence: without hematuria Qualified Code(s): N30.00 - Acute cystitis without hematuria Condition: Stable Prescriptions: New cephalexin 500 mg capsule 500 mg PO Q6H 7 Days Qty: 28 0RF No Action mirtazapine 15 mg tablet See Rx Instructions .ROUTE .COMPLEX Qty: 30 0RF Dose Instruction: TAKE 1 TABLET BY MOUTH AT BEDTIME Rx Instructions: TAKE 1 TABLET BY MOUTH AT BEDTIME bupropion HCl 150 mg tablet extended release 24 hr 150 mg PO DAILY 30 Days Qty: 30 5RF escitalopram oxalate [Lexapro] 10 mg tablet 10 mg PO DAILY Qty: 30 2RF prazosin 2 mg capsule 2 mg PO BEDTIME 30 Days Qty: 30 1RF Vitamin B-1 (mononitrate) 100 mg Tablet 100 mg PO DAILY 30 Days Qty: 30 1RF Augmentin 500-125 mg tablet 1 tab PO BID Qty: 14 0RF Discharge Orders: Discharge ED (Routine); Ordered 05/16/24 Ordered By: Larissa Hennessy Patient Instructions: Headache - Migraine (Adult), Migraine Headache (ED), Acute Headache (DC), Dysuria (ED), Urinary Tract Infection in (ED) Activity Restrictions/Additional Instructions: You may return to the emergency department for worsening or severe headache, fevers, neck pain or stiffness, repetitive episodes of vomiting, generally feeling worse or unwell, or any other concerns you may have. You your urinalysis today was suspicious for urinary tract infection. I will call you in antibiotics for this. You need to seek medical reevaluation for severe flank pain, repetitive episodes of vomiting, inability to hold down your antibiotics, fevers, generally feeling worse or unwell, or any other concerns you may have. Coding Level of Care Code ED Internal Affairs Investigator for Jessica Villa
[2024-05-16] MEDS: ondansetron 2 mg/ML SDV 2 mL 4 MG IVP (19:13)
[2024-05-16] MEDS: ketorolac 60 mg/2 mL INJ 30 MG IVP (19:14)
[2024-05-16] MEDS: diphenhydrAMINE 50 mg/mL SDV 1mL IVP (19:16)
[2024-05-16] MEDS: dexamethasone 10 mg/mL INJ 8 MG IVP (19:17)
--- NOTE | 2024-05-16 20:49 | CTR_ITS ---
PROCEDURE INFORMATION: Exam: CT Head Without Contrast Exam date and time: 05/16/2024 8:57 PM Age: 38 years old Clinical indication: Pain; Headache; Migraine; Aura effect not specified TECHNIQUE: Imaging protocol: Computed tomography of the head without contrast. Radiation optimization: All CT scans at this facility use at least one of these dose optimization techniques: automated exposure control; mA and/or kV adjustment per patient size (includes targeted exams where dose is matched to clinical indication); or iterative reconstruction. COMPARISON: No relevant prior studies available. RADIATION DOSE METRICS: Total DLP (mGy-cm): 1166.98 FINDINGS: Brain: Normal. No hemorrhage. Unremarkable white matter. No mass effect. Cerebral ventricles: No ventriculomegaly. Paranasal sinuses: Mild bilateral maxillary mucosal thickening mild mucosal thickening of the ethmoid air cells Mastoid air cells: Visualized mastoid air cells are well aerated. Bones: Unremarkable. No acute fracture. Soft tissues: Unremarkable. CT/CT head wo con* [id number] IMPRESSION: No acute intracranial or calvarial abnormality. Mild maxillary mucosal sinus disease.
[2024-05-16] MEDS: valproic acid inj 500 MG in sodium chloride 0.9% 50 ML 55 MG IV (20:50)
[2024-05-16 21:03] LABS: Basophils # 0.1 10^3/uL (0.0-0.1); Basophils % 0.9 %; Eosinophils % 0.6 %; Hematocrit 45.3 % (36-47); Lymphocytes # 2.2 10^3/uL (0.8-4.8); Lymphocytes % 33.7 %; Mean Corpuscular HGB Conc 34.2 g/dL (30-55); Mean Corpuscular Hemoglobin 32.8 pg (27-33); Mean Platelet Volume 11.4 fL (7.4-10.4); Monocytes # 0.3 10^3/uL (0.2-0.9); Monocytes % 3.9 %; Neutrophils # 4.01 10^3/uL (1.8-7.7); Neutrophils % 60.6 %; Nucleated Red Blood Cells % 0 %; Platelet Count 258 10^3/cmm (157-399); Red Blood Count 4.72 10^6/uL (3.85-5.65); Red Cell Distribution Width 12.1 % (12.1-15.1); White Blood Count 6.62 10^3/uL (3.29-11.43)
[2024-05-16 21:26] LABS: Alanine Aminotransferase 29 U/L (0-33); Albumin Level 4.8 g/dL (3.5-5.2); Alkaline Phosphatase 99 U/L (35-105); Anion Gap 23.5 (5-19); Aspartate Amino Transferase 29 U/L (0-32); Blood Urea Nitrogen 11 mg/dL (6-20); Calcium 9.8 mg/dL (8.5-10.5); Carbon Dioxide 21 mmol/L (22-29); Chloride 98 mmol/L (98-107); Creatinine Clr Calc Pharmacy 95.8233; Globulin 3.8 g/dL (1.3-4.6); Glomerular Filtration Rate 79.4 mL/min (90-130); Glucose 95 mg/dL (65-115); Osmolality Calculated 287 mOsm/kg (285-295); Potassium 3.5 mmol/L (3.5-5.1); Sodium 139 mmol/L (136-145); Total Bilirubin 0.4 mg/dL (0.15-1.2); Total Protein 8.6 g/dL (6.6-8.7)
[2024-05-16] MEDS: LORazepam 2 mg/mL INJ 1 mL 1 MG IVP (21:39)
[2024-05-16 22:00] LABS: Bilirubin Urine Negative (Negative); Blood Urine Negative (Negative); Glucose Urine UA Negative (Normal); Ketones Urine Trace (Negative); Leukocyte Esterase Urine 1+ (Negative); Nitrate Urine Negative (Negative); Protein Urine Trace (Negative); Specific Gravity, Urine 1.019 (1.005-1.030); Urine Appearance Cloudy (CLEAR); Urine Color Yellow (Yellow); pH Urine 7.5 (5-7)
--- NOTE | 2024-05-16 22:05 | PC.NURSE ---
pt has continued to c/o different issues upon every rounding, pt states she is hot, sweaty, feels right eye pain, feels dizzy, feels fatigued, states that she smells terrible, concerned about the smell of her urine, states her right eyebrow feels funny. this was reported to rafael hernandes and pt reassessed. pt resting in bed at this time.
[2024-05-16 22:06] LABS: Add Urine Microscopic? YES; Bacteria Urine EXCEEDS /hpf; Hyaline Casts Urine 5.36 /lpf; RBC Urine 0-2 /hpf (0-2); Squamous Epithelial Cell Urine 0-5 /hpf (0-5); WBC Urine 21-50 /hpf (0-5)
[2024-05-16 22:11] LABS: Amphetamines Screen Urine Positive (Negative); Barbiturates Screen Urine Negative (Negative); Benzodiazepines Screen Urine Negative (Negative); Cocaine Screen Urine Negative (Negative); Opiate Screen Urine Negative (Negative); PCP Screen Urine Negative (Negative); THC Screen Urine Positive (Negative)
[2024-05-16 22:14] LABS: Add Urine Culture? Yes
== END 2024-05-16 22:47 | disposition home or self-care (01) ==
PROVIDERS: Emergency Provider Physician Assistant
DX: F41.8 Other specified anxiety disorders (principal); G43.909 Migraine, unspecified, not intractable, without status migrainosus; N30.00 Acute cystitis without hematuria; Z72.0 Tobacco use
CPT/HCPCS: 70450; 80053; 80306; 81001; 85025; 87077; 87086; 87186; 96365; 96375; 99285; J1100; J1200; J1885; J2060; J2405; J3490